=== PATIENT | female | born 1965 | race Caucasian/White ===

== ENCOUNTER 2018-04-07 20:18 | Inpatient (IN) | payer OTHER ==
[~2018-04-07] VITALS: Ht 157.5 cm; Wt 54.4 kg
[2018-04-07 21:41] LABS: ABSOLUTE BASOPHIL COUNT 0.1 /CUMM (0.0-0.2); ABSOLUTE EOSINOPHIL COUNT 0.2 /CUMM (0.0-0.7); ABSOLUTE GRANULOCYTE CT 5.8 /CUMM (1.4-6.5); ABSOLUTE MONOCYTE COUNT 0.6 /CUMM (0.10-0.60); EOSINOPHIL % 2.7 % (0-5); GRANULOCYTE % 66.8 % (42.2-75.2); HEMATOCRIT 28.4 % (37-47); MEAN CORPUSCULAR HGB 28.5 PG (27.0-31.0); MEAN CORPUSCULAR HGB CONC 32.5 G/DL (33.0-37.0); MEAN CORPUSCULAR VOLUME 87.8 FL (81.0-99.0); MEAN PLATELET VOLUME 6.1 FL (7.4-10.4); PLATELET COUNT 667 /CUMM (130-400); RED BLOOD CELL CT 3.24 /CUMM (4.20-5.40); WHITE BLOOD CELL COUNT 8.7 /CUMM (4.8-10.8)
--- NOTE | 2018-04-07 23:57 | ED GENERAL ADULT ---
History of Present Illness General Chief Complaint: Lower Extremity Problems Stated Complaint: "SENT TO BY DR. TAYLOR LT LEG INFECTION" Source: patient, family Exam Limitations: no limitations Vital Signs & Intake/Output Vital Signs & Intake/Output Vital Signs Date Time Temp Pulse Resp B/P B/P Pulse O2 O2 Flow FiO2 Mean Ox Delivery Rate 04/07 2038 98.7 94 18 179/95 96 Room Air ED Intake and Output 04/08 0000 04/07 1200 Intake Total Output Total Balance Patient 121 lb Weight Weight Reported by Patient Measurement Method Allergies Coded Allergies: Penicillins (UNKNOWN 02/05/18) amoxicillin (From AUGMENTIN) (HIVES 02/05/18) clavulanic acid (From AUGMENTIN) (HIVES 02/05/18) erythromycin base (UNKNOWN 02/05/18) tetracycline (UNKNOWN 02/05/18) Triage Note: PT FROM HOME C/O SIB DR TAYLOR FOR LT FOOT SWELLING/RED RASH X1 DAY. PT STATES 02/14 PT HAD AN OPERATION REMOVING THE BONE OF 4TH DIGIT LT FOOT. PT PLACED ON ANTIBIOTICS FOR STAFF/BACTERIAL INFECTION. PT THEN NOTICED YESTERDAY A RED RASH/SWELLING BEGAN TO FORM. AFEBRILE IN TRIAGE. UNABLE TO VIEW IN TRIAGE, DR TAYLOR WRAPPED PTS FOOT. VSS. Triage Nurses Notes Reviewed? yes HPI: Patient is a 52-year-old female with past medical history as outlined below, most significant only a chronic and poorly healing infection of the left fourth toe and foot. She has been under the care of Dr. Guzman from podiatry, who has performed multiple resections in the office. She was evaluated in the office today and noted her new onset petechiae running up the leg; she was instructed to come to the ED immediately for IV antibiotics and hospitalization for OR procedure tomorrow. She is afebrile and otherwise well appearing. Past History Travel History Traveled to [place] past 21 day No Medical History Any Pertinent Medical History? see below for history Neurological: multiple sclerosis, Parkinson's disease, ANGELY'S DISEASE EENT: NONE Cardiovascular: M.I. X 3 Gastrointestinal: NONE Hepatic: NONE Renal: NONE Musculoskeletal: fibromyalgia, LUPUS Psychiatric: NONE Endocrine: diabetes, hypothyroidism Blood Disorders: NONE Cancer(s): NONE Surgical History Surgical History: Multiple prior resections and revisions of the left fourth toe by podiatry Psychosocial History Who do you live with Spouse What is your primary language Persian Tobacco Use: Quit >30 days ago ETOH Use: denies use Illicit Drug Use: denies illicit drug use Family History Hx Contributory? No Review of Systems Review of Systems Constitutional: Reports: see HPI. Denies: chills, diaphoresis, fever, malaise, weakness. EENTM: Reports: no symptoms. Respiratory: Reports: no symptoms. Cardiovascular: Reports: no symptoms. GI: Reports: no symptoms. Genitourinary: Reports: no symptoms. Musculoskeletal: Reports: joint pain. Skin: Reports: erythema, rash. Neurological/Psychological: Reports: no symptoms. Hematologic/Endocrine: Reports: no symptoms. Immunologic/Allergic: Reports: no symptoms. All Other Systems: Reviewed and Negative Physical Exam Physical Exam General Appearance: well developed/nourished, no apparent distress, alert, awake , comfortable Extremities: focused examination of the left foot reveals a dusky pallor to the distal foot with a chronically ill-appearing left fourth digit with signs of gangrene. Proximally, a petechial rash has developed around the malleoli and is extending approximately 20 cm up the leg. Comments: HEENT: Inspection of the head reveals a normocephalic cranium with no signs of trauma. Ophtho: Extraocular muscles are intact. The sclera are noninjected, and there is no obvious discharge. Neck: No signs of trauma or asymmetry to the neck. Respiratory: The patient exhibits no signs of labored breathing. Cardiac: Non-tachycardic. GI: No gross abdominal distention. : Deferred Extremities: See above Neuro: The patient is oriented to person, place, time, and situation, with no obvious focal motor deficits. Cranial nerves II through XII are intact, and gait is normal. Behavioral: Calm and cooperative Dermatologic: Dermatologic examination reveals no obvious rashes or exanthems. Core Measures ACS in differential dx? No CVA/TIA Diagnosis: No Sepsis Present: No Sepsis Focused Exam Completed? No Progress Differential Diagnoses I considered the following diagnoses in my evaluation of the patient: Osteomyelitis, cellulitis, deep space tissue infection, sepsis Plan of Care: Orders Procedure Date/time Status Nothing by Mouth 04/08 B Active WESTERGREN SED RATE 04/[address] in observation 04/08 2 Active ED Holding Orders 04/08 2 Active Code Status 04/08 2 Active COMPREHENSIVE METABOLIC PANEL 08/20 2123 Complete CBC WITHOUT DIFFERENTIAL 04/07 2123 Complete Current Medications Sig/Kyra Start time Last Medication Dose Stop Time Status Admin Sodium Chloride 1,000 ML ONCE ONE 04/075 AC (Normal Saline 0.9%) 04/08 624 Vancomycin HCl 1,000 MG ONCE ONE 04/07 2345 CAN Sodium Chloride 250 ML 04/08 0044 (Normal Saline 0.9%) Laboratory Tests 04/07/182130: Anion Gap 7, Estimated GFR 58 L, BUN/Creatinine Ratio 15.0, Glucose 71, Calcium 8.7, Total Bilirubin 0.2, AST 25, ALT 21, Alkaline Phosphatase 97, Total Protein 6.6, Albumin 3.4 L, Globulin 3.2, Albumin/Globulin Ratio 1.1, CBC w Diff NO MAN DIFF REQ, RBC 3.24 L, MCV 87.8, MCH 28.5, MCHC 32.5 L, RDW 14.0, MPV 6.1 L, Gran % 66.8, Lymphocytes % 22.9, Monocytes % 6.6, Eosinophils % 2.7, Basophils % 1.0, Absolute Granulocytes 5.8, Absolute Lymphocytes 2.0, Absolute Monocytes 0.6 , Absolute Eosinophils 0.2, Absolute Basophils 0.1 Initial ED EKG: none Comments: Patient presents for worsening acute on chronic foot/leg infection with new onset petechiae running proximally. Podiatry plans to operate tomorrow and requests hospitalization for IV antibiotics. I discussed the case with Dr. Guzman over the phone and he requested that we hold off on the buttocks until after intraoperative cultures are obtained. I do not feel the patient can be safely discharged home this evening. Hospitalized in he was apparently stable condition. Departure Departure Time of Disposition: 2353 Disposition: STILL A PATIENT Condition: Stable Clinical Impression Primary Impression: Foot infection Referrals: Virgilio TREVINO,James Costa (PCP/Family) Departure Forms: Customer Survey General Discharge Information Observation Note Spoke With: Saqib Carty MD Physician Advisor Notified: MUSA LOWERY DO Place Patient In: Non-ED OBS Care Area Rationale for Observation: My rational for observation is as follows I feel the patient requires hospitalization for IV antibiotics and podiatry consultation for operating room intervention tomorrow. However, I feel that is possible that she may be deemed stable for discharge home after the procedure and thus I felt that observation was appropriate over admission. Critical Care Note Critical Care Note Critical Care Time: non-applicable
--- NOTE | 2018-04-08 00:41 | History & Physical ---
See Addendum Courtney Morris 04/08/18 0040: General Information and HPI MD Statement: I have seen and personally examined ARGELIA TELLEZ and documented this H&P. The patient is a 52 year old F who presented with a patient stated chief complaint of []. Source of Information: patient, family Exam Limitations: no limitations History of Present Illness: 52 year old female with PMH MS, Parkinson's disease, Huntingtons Dz, DM, MIx3 ( January 2017), Lupus, fibromyalgia, iron def anemia, hypothyroidism presenting to ED under the direction of Dr. Kurtz who saw her in his office. Patient reports she had surgery to her left foot 4th digit on 02/14 with subsequent ' staph bacterial infection'. She was placed on multiple abx and completed that course one week ago. She reports three day history of LLE swelling and redness. Her left 4th digit has sutures in place and is actively draining purulent drainage. She reports associated n/v, chills. She reports episodes of non bloody emesis as frequent as [id number] some days. Denies chest pain, SOB, abdominal pain, fever. Of Note: she is scheduled to have vascular surgery with possible stent placement in LLE next week. She had an MRI done (at [facility] in [place]) of LLE one week ago showing abscess and osteomyelitis. Dr. Tillman is her rooming house keeper. Patient states she has had issues with Hyperkalemia and Hyponatremia in the past 2/2 medication so she stopped her Losartan in January-Dr. Recinos aware. Allergies/Medications Allergies: Coded Allergies: Penicillins (UNKNOWN 02/05/18) amoxicillin (From AUGMENTIN) (HIVES 02/05/18) clavulanic acid (From AUGMENTIN) (HIVES 02/05/18) erythromycin base (UNKNOWN 02/05/18) tetracycline (UNKNOWN 02/05/18) Home Med list Atorvastatin Calcium (Lipitor) 40 MG TABLET 1 TAB PO DAILY HLP (Reported) Cilostazol 100 MG TABLET 1 TAB PO BID PVD (Reported) Gabapentin 600 MG TABLET 1 TAB PO TID NEUROPATHY (Reported) Levothyroxine Sodium (Synthroid) 137 MCG TABLET 1 TAB PO DAILY HYPOTHYROID ( Reported) Metoprolol Succ XL (Toprol XL) 25 MG TAB 1 TAB PO DAILY HTN (Reported) Promethazine HCl 25 MG TABLET 1 TAB PO Q8P PRN NAUSEA (Reported) Ranolazine (Ranexa) 500 MG TAB.ER.12H 1 TAB PO BID CAD (Reported) Past History Travel History Traveled to [place] past 21 day No Medical History Neurological: multiple sclerosis, Parkinson's disease, ANGELY'S DISEASE EENT: NONE Cardiovascular: M.I. X 3 Gastrointestinal: NONE Hepatic: NONE Renal: NONE Musculoskeletal: fibromyalgia, LUPUS Psychiatric: NONE Endocrine: diabetes, hypothyroidism Blood Disorders: NONE Cancer(s): NONE Surgical History Surgical History: Multiple prior resections and revisions of the left fourth toe by podiatry Past Family/Social History Psychosocial History Where do you live? Home Who Do You Live With? spouse Smoking Status: Current Everyday Smoker (trying to quit [id number]) ETOH Use: denies use Illicit Drug Use: denies illicit drug use Review of Systems Review of Systems Constitutional: Reports: chills, fever. EENTM: Reports: no symptoms. Cardiovascular: Reports: no symptoms. Respiratory: Reports: no symptoms. GI: Reports: nausea, vomiting. Genitourinary: Reports: no symptoms. Musculoskeletal: Reports: joint pain (LLE foot 4th digit), muscle pain. Skin: Reports: erythema. Exam & Diagnostic Data Last 24 Hrs of Vital Signs/I&O Vital Signs Date Time Temp Pulse Resp B/P B/P Pulse O2 O2 Flow FiO2 Mean Ox Delivery Rate 04/08 0036 97 Room Air 04/07 2038 98.7 94 18 179/95 96 Room Air Intake & Output 04/08 0800 04/08 0000 04/07 1600 Intake Total Output Total Balance Patient 121 lb Weight Weight Reported by Patient Measurement Method Physical Exam General Appearance Alert, Oriented X3, Cooperative, No Acute Distress Skin LLE medial aspect with petechiae; warmth; edema; erythema left foot 4th digit with sutures in place and purulent drainage Skin Temp/Moisture Exam: Warm/Dry HEENT Atraumatic, PERRLA Neck Supple Cardiovascular Regular Rate, Normal S1, Normal S2, No Murmurs Lungs Clear to Auscultation Abdomen Normal Bowel Sounds, Soft, No Tenderness Extremities see skin exam Assessment/Plan Assessment: 52 year old female with PMH MS, Parkinson's disease, Huntingtons Dz, DM, MIx3 ( January 2017), Lupus, fibromyalgia, iron def anemia, hypothyroidism presenting to ED under the direction of Dr. Kurtz who saw her in his office. Patient reports she had surgery to her left foot 4th digit on 02/14 with subsequent ' staph bacterial infection'. She was placed on multiple abx and completed that course one week ago. She reports three day history of LLE swelling and redness. Her left 4th digit has sutures in place and is actively draining purulent drainage. She reports associated n/v, chills. She reports episodes of non bloody emesis as frequent as [id number] some days. Patient to be admitted to general medicine service for further care of the following: Problem List 1. Left foot cellulitis 2. Left foot osteomyelitis 3. Hyperkalemia 4. Thrombocytosis Admission Data: VS T98.7 P94 RR18 BP179/95 Sat96%RA Labs: WBC 8.7 H/H 9.2/28.4 Plt 667 #Left foot cellulitis and osteomyelitis -IV fluids -No abx per Dr. Kurtz -NPO for OR in AM -D51/2NS overnight #Hyperkalemia-chronic; may be medication related -continue to monitor -ekg to check for changes #Thrombocytosis-likely reactive to infection -continue to monitor #Chronic medical problems -Novolin SSI for NPO overnight -home medications as prescribed -Nicotine patch 21% as per patient request DVT prophylaxis: heparin 5000units subcu/ALP RLE/ ambulation Code Status: DNR/DNI As Ranked By This Provider Problem List: 1. MULTIPLE SCLEROSIS 2. Parkinson's disease 3. Foot infection 4. HX LUPUS Core Measures/Misc (05/05) Acute Coronary Syndrome ACS Diagnosis: No Congestive Heart Failure Congestive Heart Failure Diagnosis No Cerebrovascular Accident CVA/TIA Diagnosis: No VTE (View Protocol) VTE Risk Factors Acute Medical Illness No Mechanical VTE Prophylaxis d/t N/A MechProphylax Ordered No VTE Pharm Prophylaxis d/t NA PharmProphylax ordered Sepsis (View protocol) Sepsis Present: No If YES complete Sepsis Event Note If YES complete Sepsis Event Note Tony Fields 04/08/18 0224: Core Measures/Misc (05/05) Sepsis (View protocol) If YES complete Sepsis Event Note If YES complete Sepsis Event Note Resident Review Statement Resident Statement: examined this patient, discussed with web development intern, agreed with web development intern, discussed with family, reviewed EMR data (avail), discussed with nursing , discussed with case mgmt, reviewed images, amended to note Other Findings: This is a 52-year-old female with past medical history significant for multiple sclerosis, Parkinson's disease, Angely's disease, hypertension, hyperlipidemia, type 2 diabetes mellitus, coronary artery disease, [place] 3, peripheral vascular disease, hypothyroidism, right femoral neck fracture status post-ORIF, chronic left fourth toe infections presented to the emergency department, sent in by Dr. Guzman for left foot infection. Patient has history of chronic left fourth toe infection, underwent surgery on , treated with multiple antibiotics including staph coverage, completed 1 week ago. She has been following Dr. Guzman closely, getting outpatient debridements [id number]. However she was found to have 3 day history of left lower extremity and foot swelling associated with redness. She has her fourth digit sutures in place, actively draining purulent discharge. She also reported nausea, vomiting, chills. Offnote patient reported that she was diagnosed with left foot abscess and osteomyelitis from MRI which [facility] [place]. She is also scheduled for vascular surgery with possible stent placement left lower extremity next week. She has issues with hyperkalemia in the past, losartan was stopped in January 2018 by her rooming house keeper Dr. Mcmanus. Patient denies any chest pain, short of breath, palpitations, cough, vomiting, abdominal pain, change in bladder bowel habits. Still continues to smoke 4 packs per day. Denies alcohol abuse and illicit drug abuse. -- VS T98.7 P94 RR18 BP179/95 Sat96%RA Labs: WBC 8.7 H/H 9.2/28.4 Plt 667 Sodium 133, potassium 5.6, BUN 15 and creatinine 1 --- 1. Left foot cellulitis/osteomyelitis Patient has chronic left fourth toe infection, status post bone removal 2017, getting [id number] outpatient debridements, found to have left foot abscess and osteomyelitis on MRI, sent in by Dr. Guzman to the emergency room for inpatient admission to take her to the emergency room for bone biopsy and debridement. * Admitted to [facility] * Monitor vitals every shift * monitor for fever, leukocytosis * Patient will be n.p.o. tonight * D5 half normal saline 75 mL/h * Will hold off antibiotics pending surgery in the a.m. * Follow-up podiatry recommendations * Start antibiotics in the a.m. after surgery Thrombocytosis Platelets 667 most likely reactive secondary to infection and anemia Continue to monitor platelet count Chronic hyperkalemia Most likely from medication related Will check EKG for any hyperkalemia changes Repeat potassium in the a.m. Hypertension continue metoprolol 25 daily Hyperlipidemia continue Lipitor 40 daily Diabetes mellitus Accu-Cheks, Novolin sliding scale and Levemir 22 units in the a.m. Peripheral neuropathy continue gabapentin 600 mg 3 times daily Coronary artery disease continue Lipitor, Ranexa, metoprolol Peripheral vascular disease continue cilostazol 100 twice daily Hypothyroidism continue levothyroxine 137 mcg daily Current daily smoker-nicotine patch 21 mg daily She is DNR/DNI N.p.o. Heparin subcu for DVT prophylaxis Pain pathway Saqib Leal MD 04/08/18 0712: Core Measures/Misc (05/05) Sepsis (View protocol) If YES complete Sepsis Event Note If YES complete Sepsis Event Note Attending MD Review Statement Attending Statement Attending MD Statement: examined this patient, discuss w/resident/PA/SECOND WORKER, agreed w/resident/PA/SECOND WORKER Attending Assessment/Plan: Patient is seen and examined independently by me. Care plan discussed with certified medical technician and resident. I agree with the physical exam findings and plan of care as outlined above with the following changes and additions. 52 yo F with history of CAD s/p [place] x3, PVD, HTN, HLD, DM, multiple sclerosis, Parkinson, [place]'s disease, hypothyroidism, s/p fall in December resulting left toes fracture with 4th digit bone protrusion which required surgery on 02/14/18 and had multiple debridement since then. Patient also has been on several course of antibiotic with Cipro as last one finished one week ago. She also had MRI told that she has left foot abscess and osteomyelitis. Patient is also followed by vascular surgery and planned to have stent placement of left leg next week. On exam, left 4th toe with erythema and warmth extending to left foot with petechial rash on left medial lower leg. In the ED, patient is afebrile. WBC 8.7. K 5.6. Patient is placed on observation to [facility] for left 4th toe infection/ osteomyelitis and LLE cellulitis. NPO for now and plan for OR procedure. Check ESR. Initiate antibiotic as soon as OR procedure culture is obtained. Podiatry consult. Check EKG. Saqib Carty MD FACP
[2018-04-08] MEDS ORDERED: LIPITOR40 M1 PO (00:47)
[2018-04-08] MEDS ORDERED: TOPROL XL25 M1 PO (00:48)
[2018-04-08] MEDS ORDERED: RANEXA500 M1 PO (00:49)
[2018-04-08] MEDS ORDERED: GABAPENTIN600 M1 PO (00:49)
[2018-04-08] MEDS ORDERED: CILOSTAZOL100 M1 PO (00:49)
[2018-04-08] MEDS ORDERED: PROMETHAZINE HC25 M3 PO (00:50)
[2018-04-08] MEDS ORDERED: SYNTHROID137 MCG PO (00:50)
[2018-04-08 06:08] LABS: ABSOLUTE BASOPHIL COUNT 0.1 /CUMM (0.0-0.2); ABSOLUTE EOSINOPHIL COUNT 0.2 /CUMM (0.0-0.7); ABSOLUTE GRANULOCYTE CT 4.4 /CUMM (1.4-6.5); ABSOLUTE LYMPH COUNT 2.1 /CUMM (1.2-3.4); ABSOLUTE MONOCYTE COUNT 0.4 /CUMM (0.10-0.60); BASOPHIL % 1.1 % (0.0-2.0); EOSINOPHIL % 3.3 % (0-5); GRANULOCYTE % 60.7 % (42.2-75.2); HEMATOCRIT 26.4 % (37-47); MEAN CORPUSCULAR HGB 28.8 PG (27.0-31.0); MEAN CORPUSCULAR VOLUME 87.2 FL (81.0-99.0); MEAN PLATELET VOLUME 6.3 FL (7.4-10.4); PLATELET COUNT 569 /CUMM (130-400); RBC DISTRIBUTION WIDTH 13.8 % (11.5-14.5); RED BLOOD CELL CT 3.02 /CUMM (4.20-5.40); WHITE BLOOD CELL COUNT 7.2 /CUMM (4.8-10.8)
--- NOTE | 2018-04-08 10:30 | RADIOLOGY REPORT ---
EXAMINATION: XR PORTABLE CHEST CLINICAL INFORMATION: Low sugar. COMPARISON: 03/03/2013 TECHNIQUE: Portable frontal view of the chest was obtained. FINDINGS: Cardiomediastinal silhouette is within normal limits. Lungs are symmetric expanded. There is mild interstitial prominence in bilateral lungs. Minimal left basilar atelectasis. No focal consolidation, effusion, edema or pneumothorax. No acute osseous abnormality seen. IMPRESSION: Mild left basilar atelectasis. No focal consolidation.
--- NOTE | 2018-04-08 12:18 | PN- Att Addend ---
Attending Addendum Attending Brief Note S: The patient feels cold in room, however no fever. Anticipating surgery. O: VS: Current Medications Sig/Kyra Start time Last Medication Dose Route Stop Time Status Admin Acetaminophen 650 MG Q6P PRN 04/08 0030 AC PO Atorvastatin Calcium 40 MG DAILY 04/08 0900 AC PO Cilostazol 100 MG BID 04/08 0900 AC PO Dextrose 25 GM ONCE ONE 04/08 1030 DC 04/08 IV 04/08 1031 1026 Dextrose 25 GM ONCE ONE 04/08 0900 DC 04/08 IV 04/08 0901 0853 Dextrose/Sodium 1,000 ML Q13H 04/08 0100 AC 04/08 Chloride IV 04/08 1359 0112 Gabapentin 600 MG Q8 04/08 06 AC PO Gabapentin 0 .STK-MED ONE 04/08 0558 DC PO Heparin Sodium 5,000 UNIT Q8 04/08 1400 AC (Porcine) SC Insulin Detemir 22 UNITS DAILY 04/08 0900 AC SC Insulin Human Regular 0 Q6 04/08 0100 AC 04/08 SC 0601 Levothyroxine Sodium 0.137 MG DAILY 04/08 0900 AC PO Metoprolol Succinate 25 MG DAILY 04/08 0900 AC 04/08 PO 0903 Nicotine 21 MG DAILY 04/08 0900 AC TOP Ondansetron HCl 0 .STK-MED ONE 04/07 2357 DC .ROUTE Ondansetron HCl 4 MG ONCE ONE 04/07 2345 DC 04/08 IV 04/07 2346 0018 Promethazine HCl 25 MG Q8P PRN 04/08 0100 AC PO 04/15 0059 Ranolazine 500 MG BID 04/08 09 AC 04/08 PO 0903 Sodium Chloride 1,000 ML ONCE ONE 04/07 2345 DC 04/08 IV 04/08 0624 0018 Vancomycin HCl 0 .STK-MED ONE 04/07 235 DC .ROUTE Vancomycin HCl 1,000 MG ONCE ONE 04/07 2345 CAN Sodium Chloride 250 ML IV 04/08 0044 Vital Signs Date Time Temp Pulse Resp B/P B/P Pulse O2 O2 Flow FiO2 Mean Ox Delivery Rate 04/08 09 97.9 80 20 142/65 04/08 0903 97.9 80 20 142/65 04/08 0750 97.6 88 20 147/78 99 Room Air 04/08 0548 95.7 90 20 156/77 100 Room Air 04/08 0036 97 Room Air 04/078 98.7 94 18 179/95 96 Room Air Intake & Output 04/08 1600 04/08 0800 04/08 0000 Intake Total Output Total Balance Patient 157 lb 121 lb Weight Weight Reported by Patient Reported by Patient Measurement Method Physical Exam: Chest: clear Cor: RRR nl S1, S2 w/o murm Abd: BS+, soft, NT Ext: pulses 1+, no edema, + erythematous ulcer left 4th-5th toe areas Labs/Tests: Laboratory Tests 04/08/18 0551: Anion Gap 6, Estimated GFR > 60, BUN/Creatinine Ratio 16.7, CBC w Diff NO MAN DIFF REQ, RBC 3.02 L, MCV 87.2, MCH 28.8, MCHC 33.0, RDW 13.8, MPV 6.3 L, Gran % 60.7, Lymphocytes % 28.7, Monocytes % 6.2, Eosinophils % 3.3, Basophils % 1.1, Absolute Granulocytes 4.4, Absolute Lymphocytes 2.1, Absolute Monocytes 0.4, Absolute Eosinophils 0.2, Absolute Basophils 0.1 04/08/18 0030: ESR Westergren 64 H 04/07/18 2131: Anion Gap 7, Estimated GFR 58 L, BUN/Creatinine Ratio 15.0, Glucose 71, Calcium 8.7, Total Bilirubin 0.2, AST 25, ALT 21, Alkaline Phosphatase 97, Total Protein 6.6, Albumin 3.4 L, Globulin 3.2, Albumin/Globulin Ratio 1.1, CBC w Diff NO MAN DIFF REQ, RBC 3.24 L, MCV 87.8, MCH 28.5, MCHC 32.5 L, RDW 14.0, MPV 6.1 L, Gran % 66.8, Lymphocytes % 22.9, Monocytes % 6.6, Eosinophils % 2.7, Basophils % 1.0, Absolute Granulocytes 5.8, Absolute Lymphocytes 2.0, Absolute Monocytes 0.6 , Absolute Eosinophils 0.2, Absolute Basophils 0.1 MRI of foot was done at outside Radiology Facility in [place] CT Impression/Plan: #Left Foot Osteomyelitis- ?4th/5th toes as per report. No fever, normal WBC. Plan: Await Podiatry input- to go to OR today. IV antibiotics post surgery (?Unasyn). Will calculate RCRI- assess surgical risk. Obtain copy of MRI report from outside imaging facility in [place], [place]. #DM2- has been hypoglycemic in ED and received D50 x 2 doses. Plan: Dextrose in IV's. Follow glu closely pre-operatively. Sliding scale insulin at present. #CAD- s/p LA - No c/o chest pain or ischemic changes on EKG. Plan: Obtain recent cardiac records and review. Dr. Tillman group is seeing at present. Continue Metoprolol & Ranolazine. Cardiac evaluation pre-op. #PVD- Had LLE MRI evaluation. May need stent. Is on Pletal. Plan: Will obtain vascular records. #Hyperlipidemia- on Atorvastatin. Plan: Continue Atorvastatin. #Hypothyroid- on Levothyroxine. Plan: Continue Levothyroxine. #Anemia- note significant decrease since 02/05 Hgb 11.1 and now 8.7. Plan: Heme test stools. Follow H/H. #Diabetic Neuropathy- on Gabapentin. Plan: Continue Gabapentin. ADDENDUM- The patient had been seen recently by Dr. Tillman and cleared for surgical procedure at that time. Will place notes in chart.
--- NOTE | 2018-04-08 14:51 | Operative Report ---
Operative/Inv Procedure Report Surgery Date: 04/08/18 Name of Procedure: 1 open incision and drainage deep to the deep fascia with exposure of the extensor and flexor tendon and tendon sheath multiple sites left 2 open, partial fourth ray resection left foot 3 intraoperative menstruation metabolic anesthesia 4 excisional debrided Pre-Operative Diagnosis: 1 open, necrotic wound left 2 osteomyelitis left 3 diabetic peripheral neuropathy 4 peripheral arterial disease Post-Operative Diagnosis: The same Estimated Blood Loss: less than 50ml Surgeon/Market Survey Representative: MICHA LOZADA DPM Anesthesia: moderate sedation, block Operative/Procedure Note Note: After obtaining informed consent the patient was brought to the operating room and placed on the operating table in the supine position. The patient was then securely fastened to the operating table utilizing a safety belt. After menstruation of IV sedation, 10 cc of 0.5% Marcaine plain was infiltrated about the patient's left ankle. The left foot and ankle were then scrubbed, prepped and draped in usual aseptic manner. Digitek the left foot, where a large full- thickness necrotic was identified. A 15 blade was utilized sharply advise skin margins. The dissection was then carried down deep to the deep fascia with exposure of the extensor and flexor tendon and tendon sheath multiple sites, both proximally and distally. All necrotic, nonviable infected tissue was sharply evacuated of the wound bed. The dissection was then carried down to the periosteum overlying the distal fourth metatarsal. This was incised and reflected. A sagittal bone saw was utilized to perform a through and through osteotomy. The distal osseous segment was freed and passed from the operative field. Specimen sent for both microbiology and pathologic inspection. The open was then irrigated with 3 L of normal sterile saline infused with 50,000 units of bacitracin. Following this, the foot was redraped and the surgeons top of the tragically lost. Any bleeding vessels identified were cauterized and lysed encountered. The open was then packed with half-inch iodoform and 3-0 nylon retention sutures were placed. Foot was then dressed with Kerlix and an Anthony wrap. Patient was noted to tolerate both procedure and anesthesia well and the patient was transported to the operating room to recovery with vital signs stable.
[2018-04-08 18:15] VITALS: BP 148/80
[2018-04-08 21:34] VITALS: BP 163/80
[2018-04-09 06:32] VITALS: BP 140/70
--- NOTE | 2018-04-09 07:20 | PN- Housestaff ---
Parviz Middleton 04/09/18 0712: Subjective Follow-up For: Left foot fourth toe cellulitis Possible osteomyelitis Diabetes mellitus Hypertension Peripheral vascular disease Subjective: I visited the patient this morning, she was lying back in her bed, alert and oriented 3, in no acute distress. She reports no fever, or chills. She had pain in her foot, which was relieved with medication. Review of Systems Constitutional: Reports: see HPI. Objective Last 24 Hrs of Vital Signs/I&O Vital Signs Date Time Temp Pulse Resp B/P B/P Pulse O2 O2 Flow FiO2 Mean Ox Delivery Rate 04/09 1442 98.4 79 18 122/64 97 Room Air 04/09 0824 88 130/68 04/09 0632 98.5 88 20 140/70 94 Room Air 04/08 2134 98.5 85 17 163/80 99 Room Air 04/08 2004 152/88 Intake & Output 04/09 1600 04/09 0800 04/09 0000 Intake Total 720 120 120 Output Total 500 Balance 720 120 -380 Intake, Oral 720 120 120 Output, Urine 500 Patient 120 lb 120 lb Weight Weight Reported by Patient Measurement Method Physical Exam General Appearance: Alert, Oriented X3, Cooperative, No Acute Distress Skin: No Rashes Skin Temp/Moisture Exam: Warm/Dry Sepsis Skin Exam (color): Normal for Ethnicity HEENT: Atraumatic Cardiovascular: Regular Rate, Normal S1, Normal S2 Lungs: Normal Air Movement Abdomen: Normal Bowel Sounds, Soft, No Tenderness Extremities: amputated left fourth toe Assessment/Plan Assessment: 52 year old female with PMH MS, Parkinson's disease, Huntingtons Dz, DM, MIx3 ( January 2017), Lupus, fibromyalgia, iron def anemia, hypothyroidism presenting to ED under the direction of Dr. Kurtz who saw her in his office. Patient reports she had surgery to her left foot 4th digit on 02/14 with subsequent ' staph bacterial infection'. She was placed on multiple abx and completed that course one week ago. She reports three day history of LLE swelling and redness. Her left 4th digit has sutures in place and is actively draining purulent drainage. She reports associated n/v, chills. She reports episodes of non bloody emesis as frequent as [id number] some days. Left foot cellulitis: We are awaiting the results of the culture from the OR, to decide for antibiotics. ID consult appreciated. Plan: Holding IV antibiotics. Left foot osteomyelitis: Amputation of left fourth toe was done by Dr. Guzman. He probably will take the patient later to OR for the revision. Plan: Imaging was done Hyperkalemia: may be medication related Plan: continue to monitor, ECG to check for changes Thrombocytosis: likely reactive to infection Plan: continue to monitor Active smoker: Actively uses tobacco Plan: Nicotine patch 21mg as per patient request DVT prophylaxis: heparin 5000units subcu/ALP RLE/ ambulation Code Status: DNR/DNI Problem List: 1. Cellulitis 2. Diabetes mellitus type 1 3. Parkinson's disease 4. Moira's chorea 5. Hypothyroidism Pain Ratin Pain Location: Left foot Pain Goal: Pain 4 or less Pain Plan: percocet Tomorrow's Labs & Rationales: CBC BEP Jah Gan MD 04/09/18 6425: Attending MD Review Statement Attending Statement Attending MD Statement: examined this patient, discuss w/resident/PA/FAMILY COURT JUSTICE, agreed w/resident/PA/FAMILY COURT JUSTICE, reviewed EMR data (avail), discussed with nursing, discussed with case mgmt, amended to note Attending Assessment/Plan: The patient was seen and discussed with house staff, nursing, and case management. Converted to full admission. ID input appreciated. Awaiting cultures prior to antibiotics. Will need further surgery/closure ?later in week. Await input from Podiatry.
[2018-04-09 14:42] VITALS: BP 122/64
--- NOTE | 2018-04-09 15:48 | Cons- Infect Disease ---
General Information and HPI Consulting Request Date of Consult: 04/09/18 Requested By: Jah Gan MD Reason for Consult: Osteomyelitis of the left fourth toe and metatarsal Source of Information: patient, family History of Present Illness: This is a 52-year-old woman with a history of coronary artery disease, status post SC, multiple sclerosis, Parkinson's disease, Angely's disease, lupus, hypothyroidism, diabetes and peripheral vascular disease, status post a fall 3 months prior to admission resulting in a fracture of her left fourth toe, treated by her local flight mechanic with Keflex, with pain and drainage since then, status post removal of part of the toe nearly 8 weeks prior to admission by her flight mechanic, with "Staph" isolated from the culture, continued on Keflex postop, with the addition of Ciprofloxacin several weeks prior to admission, both of which were discontinued by the patient approximately 2 weeks prior to admission, seen by Vascular surgery 4 days prior to admission, with plans for revascularization on April 14, admitted on April 07 after an outpatient MRI revealed an abscess and osteomyelitis of the left foot, with continued pain and drainage from the foot and with the more acute onset of erythema and edema over the dorsum of the foot and leg. On admission she was afebrile. Laboratory data revealed a white blood cell count of 9000, BUN/creatinine 15 and 1.0, with normal liver enzymes. Urinalysis 1-3 RBC/10-15 WBCs. Chest x-ray revealed mild left basilar atelectasis. She was followed off antibiotics and was taken to the OR on April 08 for an open, partial fourth ray resection of the left foot. She was followed off antibiotics postoperatively and has remained afebrile with a normal white blood cell count. She does note some discomfort in the left foot but has no other complaints. Allergies/Medications Allergies: Coded Allergies: Penicillins (UNKNOWN 02/05/18) amoxicillin (From AUGMENTIN) (HIVES 02/05/18) clavulanic acid (From AUGMENTIN) (HIVES 02/05/18) erythromycin base (UNKNOWN 02/05/18) tetracycline (UNKNOWN 02/05/18) Home Med List: Atorvastatin Calcium (Lipitor) 40 MG TABLET 1 TAB PO DAILY HLP (Reported) Cilostazol 100 MG TABLET 1 TAB PO BID PVD (Reported) Gabapentin 600 MG TABLET 1 TAB PO TID NEUROPATHY (Reported) Levothyroxine Sodium (Synthroid) 137 MCG TABLET 1 TAB PO DAILY HYPOTHYROID ( Reported) Metoprolol Succ XL (Toprol XL) 25 MG TAB 1 TAB PO DAILY HTN (Reported) Promethazine HCl 25 MG TABLET 1 TAB PO Q8P PRN NAUSEA (Reported) Ranolazine (Ranexa) 500 MG TAB.ER.12H 1 TAB PO BID CAD (Reported) Past History Travel History Traveled to [place] past 21 day No Medical History Neurological: multiple sclerosis, Parkinson's disease, ANGELY'S DISEASE EENT: NONE Cardiovascular: CAD, M.I. X 3 Gastrointestinal: NONE Hepatic: NONE Renal: NONE Musculoskeletal: fibromyalgia, LUPUS Psychiatric: NONE Endocrine: diabetes, hypothyroidism Blood Disorders: NONE Cancer(s): NONE History of MRSA: No History of VRE: No History of CDIFF: No Isolation History: Standard Surgical History Surgical History: s/p resection of part of the bone of the left 4th toe Psychosocial History Where Do You Live? Home Who Do You Live With? spouse Smoking Status: Current Everyday Smoker (trying to quit [id number]) ETOH Use: denies use Illicit Drug Use: denies illicit drug use Review of Systems Review of Systems All Other Systems: Reviewed and Negative Exam & Diagnostic Data Last 24 Hrs of Vital Signs/I&O Vital Signs Date Time Temp Pulse Resp B/P B/P Pulse O2 O2 Flow FiO2 Mean Ox Delivery Rate 04/09 1442 98.4 79 18 122/64 97 Room Air 04/09 0824 88 130/68 04/09 0632 98.5 88 20 140/70 94 Room Air 04/08 2134 98.5 85 17 163/80 99 Room Air 04/08 2004 152/88 04/08 1815 97.8 76 18 148/80 98 Room Air 04/08 1800 98 Room Air Intake & Output 04/09 1600 04/09 0800 04/09 0000 Intake Total 720 120 120 Output Total 500 Balance 720 120 -380 Intake, Oral 720 120 120 Output, Urine 500 Patient 120 lb 120 lb Weight Weight Reported by Patient Measurement Method Physical Exam Other Physical Findings: She is awake and alert in no acute distress. She is afebrile. Skin reveals no rash. HEENT exam is negative. Neck is supple with no adenopathy. Lungs are clear. Heart regular rhythm with no murmur. Abdomen is soft, nontender with positive bowel sounds. Back no CVA tenderness. Extremities left foot dressing intact; left leg with no erythema, edema or warmth. Neuro is without focality. Last 24 Hours of Lab Results: Laboratory Tests 04/08 04/08 1219 0551 Chemistry Sodium (137 - 145 mmol/L) 132 L Potassium (3.5 - 5.1 mmol/L) 4.8 Chloride (98 - 107 mmol/L) 106 Carbon Dioxide (22 - 30 mmol/L) 21 L Anion Gap (5 - 16) 6 BUN (7 - 17 mg/dL) 15 Creatinine (0.5 - 1.0 mg/dL) 0.9 Estimated GFR (>60 ml/min) > 60 BUN/Creatinine Ratio (7 - 25 %) 16.7 Hematology CBC w Diff NO MAN DIFF REQ WBC (4.8 - 10.8 /CUMM) 7.2 RBC (4.20 - 5.40 /CUMM) 3.02 L Hgb (12.0 - 16.0 G/DL) 8.7 L Hct (37 - 47 %) 26.4 L MCV (81.0 - 99.0 FL) 87.2 MCH (27.0 - 31.0 PG) 28.8 MCHC (33.0 - 37.0 G/DL) 33.0 RDW (11.5 - 14.5 %) 13.8 Plt Count (130 - 400 /CUMM) 569 H MPV (7.4 - 10.4 FL) 6.3 L Gran % (42.2 - 75.2 %) 60.7 Lymphocytes % (20.5 - 51.1 %) 28.7 Monocytes % (1.7 - 9.3 %) 6.2 Eosinophils % (0 - 5 %) 3.3 Basophils % (0.0 - 2.0 %) 1.1 Absolute Granulocytes (1.4 - 6.5 /CUMM) 4.4 Absolute Lymphocytes (1.2 - 3.4 /CUMM) 2.1 Absolute Monocytes (0.10 - 0.60 /CUMM) 0.4 Absolute Eosinophils (0.0 - 0.7 /CUMM) 0.2 Absolute Basophils (0.0 - 0.2 /CUMM) 0.1 Urines Urine Color (YEL,AMB,STR) YEL Urine Clarity (CLEAR) HAZY H Urine pH (5.0 - 8.0) 6.0 Ur Specific [place] (1.001 - 1.035) 1.010 Urine Protein (NEG,<30 MG/DL) NEG Urine Ketones (NEG) NEG Urine Nitrite (NEG) NEG Urine Bilirubin (NEG) NEG Urine Urobilinogen (0.1 - 1.0 EU/dl) 0.2 Ur Leukocyte Esterase (NEG) MOD H Ur Microscopic SEDIMENT EXAMINED Urine RBC (0 - 5 /HPF) 1-3 Urine WBC (0 - 2 /HPF) 10-15 H Ur Epithelial Cells (NONE,FEW) FEW Urine Bacteria (NEG/NONE) FEW H Urine Hemoglobin (NEG) NEG Urine Glucose (N MG/DL) NEG 04/08 04/07 0030 2131 Chemistry Sodium (137 - 145 mmol/L) 133 L Potassium (3.5 - 5.1 mmol/L) 5.6 H Chloride (98 - 107 mmol/L) 102 Carbon Dioxide (22 - 30 mmol/L) 23 Anion Gap (5 - 16) 7 BUN (7 - 17 mg/dL) 15 Creatinine (0.5 - 1.0 mg/dL) 1.0 Estimated GFR (>60 ml/min) 58 L BUN/Creatinine Ratio (7 - 25 %) 15.0 Glucose (65 - 99 mg/dL) 71 Calcium (8.4 - 10.2 mg/dL) 8.7 Total Bilirubin (0.2 - 1.3 mg/dL) 0.2 AST (14 - 36 U/L) 25 ALT (9 - 52 U/L) 21 Alkaline Phosphatase (<127 U/L) 97 Total Protein (6.3 - 8.2 g/dL) 6.6 Albumin (3.5 - 5.0 g/dL) 3.4 L Globulin (1.9 - 4.2 gm/dL) 3.2 Albumin/Globulin Ratio (1.1 - 2.2 %) 1.1 Hematology CBC w Diff NO MAN DIFF REQ WBC (4.8 - 10.8 /CUMM) 8.7 RBC (4.20 - 5.40 /CUMM) 3.24 L Hgb (12.0 - 16.0 G/DL) 9.2 L Hct (37 - 47 %) 28.4 L MCV (81.0 - 99.0 FL) 87.8 MCH (27.0 - 31.0 PG) 28.5 MCHC (33.0 - 37.0 G/DL) 32.5 L RDW (11.5 - 14.5 %) 14.0 Plt Count (130 - 400 /CUMM) 667 H MPV (7.4 - 10.4 FL) 6.1 L Gran % (42.2 - 75.2 %) 66.8 Lymphocytes % (20.5 - 51.1 %) 22.9 Monocytes % (1.7 - 9.3 %) 6.6 Eosinophils % (0 - 5 %) 2.7 Basophils % (0.0 - 2.0 %) 1.0 Absolute Granulocytes (1.4 - 6.5 /CUMM) 5.8 Absolute Lymphocytes (1.2 - 3.4 /CUMM) 2.0 Absolute Monocytes (0.10 - 0.60 /CUMM) 0.6 Absolute Eosinophils (0.0 - 0.7 /CUMM) 0.2 Absolute Basophils (0.0 - 0.2 /CUMM) 0.1 ESR Westergren (0 - 20 MM) 64 H Last 24 Hours of Donovan Results: OR culture April 08 labeled left foot bone pending Diagnostic Data Recent Imaging Findings: Chest x-ray April 08 mild left basilar atelectasis Assessment/Plan Assessment/Plan Impression: This is a 52-year-old woman with diabetes, status post a fall 3 months prior to admission resulting in a fracture of her left fourth toe, status post removal of part of the toe nearly 2 months prior to admission and treated over the past 3 months with antibiotics, admitted on April 07 with continued drainage and pain in the left foot and the more acute onset of erythema and swelling over the dorsum of her left foot and leg, after an outpatient MRI 5 days prior to admission revealing an abscess and osteomyelitis of the left foot, found on admission to be afebrile with a normal white blood cell count now one day status post open, partial fourth ray resection of the left foot.. Her clinical picture is consistent with osteomyelitis of the left fourth toe. She has undergone resection of the toe and part of the metatarsal and will require a prolonged course of antibiotics for residual osteomyelitis. Her OR culture is pending and, as she is stable, with her temperatures and white blood cell count remaining normal, feel that she can be followed off antibiotics pending culture results. She does report multiple antibiotic allergies, which will need to be taken into account when choosing her antibiotics. Suggestion: 1. Follow-up the OR culture 2. Await return to the OR later this week 3. May need to defer her scheduled vascular surgery (will need to discuss with Dr. Oneil) 4. Continue to follow off antibiotics pending above Consult Acknowledgment - Thank you for your consult request.
--- NOTE | 2018-04-09 17:16 | Cons- Endocrinology ---
General Information and HPI Consulting Request Date of Consult: 04/09/18 Requested By: medical team Reason for Consult: uncontrol;led diabetes Source of Information: patient, old records Exam Limitations: no limitations History of Present Illness: This 52-year-old woman has a long-standing history of type 1 diabetes. She tends to take her background insulin insulin which is Lantus 22 units once a day but takes very little premeal; insulin at home. She is often noncompliant on her diabetic regimen. The patient apparently fractured toes in her left foot about 2 or 3 months ago. She states that she then developed some exposed bone. She was taken to the OR by a plant operations worker at [facility].. Yesterday she saw Dr. Garcia in the office who sent her to the emergency room. She then under went surgery with incision and drainage of abscess in the left foot along with a partial fourth ray resection. This was done by Dr. Guzman yesterday. The patient did not receive her usual dose of Levemir yesterday morning. She received 1 dose of regular and 4 units in the morning. Her sugars then became low yesterday during the day while the patient was n.p.o. She was not placed on any IV fluids at all while she was n.p.o. The patient did receive some 50% glucose on two occasions when her sugars became low.. When she returned from the OR her sugar was 305. Today the patient sugars became very high. She has received some extra NovoLog. She did receive her 22 units of Levemir this morning. Allergies/Medications Allergies: Coded Allergies: Penicillins (UNKNOWN 02/05/18) amoxicillin (From AUGMENTIN) (HIVES 02/05/18) clavulanic acid (From AUGMENTIN) (HIVES 02/05/18) erythromycin base (UNKNOWN 02/05/18) tetracycline (UNKNOWN 02/05/18) Home Med List: Atorvastatin Calcium (Lipitor) 40 MG TABLET 1 TAB PO DAILY HLP (Reported) Cilostazol 100 MG TABLET 1 TAB PO BID PVD (Reported) Gabapentin 600 MG TABLET 1 TAB PO TID NEUROPATHY (Reported) Insulin Aspart (Novolog) 100 UNIT/ML VIAL 0 UNITS SC SEE ADMIN CRITERIA DM Take 2 units before each meal Add additional units per slioding scale below: 150-200: 1 unit 201-250: 2 units 251-300: 3 units 301-350: 4 units 351-400: 5 units 401-450: 6 units Insulin-Lantus (Lantus) 100 UNIT/ML VIAL 16 UNITS SC QHS DM Levothyroxine Sodium (Synthroid) 137 MCG TABLET 1 TAB PO DAILY HYPOTHYROID ( Reported) Metoprolol Succ XL (Toprol XL) 25 MG TAB 1 TAB PO DAILY HTN (Reported) Promethazine HCl 25 MG TABLET 1 TAB PO Q8P PRN NAUSEA (Reported) Ranolazine (Ranexa) 500 MG TAB.ER.12H 1 TAB PO BID CAD (Reported) Review of Systems Review of Systems Constitutional: Denies: chills, fever. Cardiovascular: Denies: chest pain. Respiratory: Denies: cough. GI: Denies: abdominal pain, nausea, vomiting. Genitourinary: Denies: dysuria. Past History Travel History Traveled to [place] past 21 day No Medical History Neurological: multiple sclerosis, Parkinson's disease, ANGELY'S DISEASE EENT: NONE Cardiovascular: CAD, M.I. X 3 Gastrointestinal: NONE Hepatic: NONE Renal: NONE Musculoskeletal: fibromyalgia, LUPUS Psychiatric: NONE Endocrine: diabetes, hypothyroidism Blood Disorders: NONE Cancer(s): NONE Surgical History Surgical History: s/p resection of part of the bone of the left 4th toe Psychosocial History Where Do You Live? Home Who Do You Live With? spouse Smoking Status: Current Everyday Smoker (trying to quit [id number]) ETOH Use: denies use Illicit Drug Use: denies illicit drug use Exam & Diagnostic Data Last 24 Hrs of Vital Signs/I&O Vital Signs Date Time Temp Pulse Resp B/P B/P Pulse O2 O2 Flow FiO2 Mean Ox Delivery Rate 04/09 1442 98.4 79 18 122/64 97 Room Air 04/09 0824 88 130/68 04/09 0632 98.5 88 20 140/70 94 Room Air 04/08 2134 98.5 85 17 163/80 99 Room Air 04/08 2004 152/88 Intake & Output 04/09 1600 04/09 0800 04/09 0000 Intake Total 720 120 120 Output Total 500 Balance 720 120 -380 Intake, Oral 720 120 120 Output, Urine 500 Patient 120 lb 120 lb Weight Weight Reported by Patient Measurement Method Physical Exam General Appearance: alert, awake, comfortable Head: normal appearance Neck: normal inspection Respiratory: normal breath sounds Cardiovascular: regular rate/rhythm Gastrointestinal: normal bowel sounds Extremities: normal inspection Labs/Donovan Results: Laboratory Tests 04/08 04/08 1219 0551 Chemistry Sodium (137 - 145 mmol/L) 132 L Potassium (3.5 - 5.1 mmol/L) 4.8 Chloride (98 - 107 mmol/L) 106 Carbon Dioxide (22 - 30 mmol/L) 21 L Anion Gap (5 - 16) 6 BUN (7 - 17 mg/dL) 15 Creatinine (0.5 - 1.0 mg/dL) 0.9 Estimated GFR (>60 ml/min) > 60 BUN/Creatinine Ratio (7 - 25 %) 16.7 Hematology CBC w Diff NO MAN DIFF REQ WBC (4.8 - 10.8 /CUMM) 7.2 RBC (4.20 - 5.40 /CUMM) 3.02 L Hgb (12.0 - 16.0 G/DL) 8.7 L Hct (37 - 47 %) 26.4 L MCV (81.0 - 99.0 FL) 87.2 MCH (27.0 - 31.0 PG) 28.8 MCHC (33.0 - 37.0 G/DL) 33.0 RDW (11.5 - 14.5 %) 13.8 Plt Count (130 - 400 /CUMM) 569 H MPV (7.4 - 10.4 FL) 6.3 L Gran % (42.2 - 75.2 %) 60.7 Lymphocytes % (20.5 - 51.1 %) 28.7 Monocytes % (1.7 - 9.3 %) 6.2 Eosinophils % (0 - 5 %) 3.3 Basophils % (0.0 - 2.0 %) 1.1 Absolute Granulocytes (1.4 - 6.5 /CUMM) 4.4 Absolute Lymphocytes (1.2 - 3.4 /CUMM) 2.1 Absolute Monocytes (0.10 - 0.60 /CUMM) 0.4 Absolute Eosinophils (0.0 - 0.7 /CUMM) 0.2 Absolute Basophils (0.0 - 0.2 /CUMM) 0.1 Urines Urine Color (YEL,AMB,STR) YEL Urine Clarity (CLEAR) HAZY H Urine pH (5.0 - 8.0) 6.0 Ur Specific [place] (1.001 - 1.035) 1.010 Urine Protein (NEG,<30 MG/DL) NEG Urine Ketones (NEG) NEG Urine Nitrite (NEG) NEG Urine Bilirubin (NEG) NEG Urine Urobilinogen (0.1 - 1.0 EU/dl) 0.2 Ur Leukocyte Esterase (NEG) MOD H Ur Microscopic SEDIMENT EXAMINED Urine RBC (0 - 5 /HPF) 1-3 Urine WBC (0 - 2 /HPF) 10-15 H Ur Epithelial Cells (NONE,FEW) FEW Urine Bacteria (NEG/NONE) FEW H Urine Hemoglobin (NEG) NEG Urine Glucose (N MG/DL) NEG 04/08 04/07 0030 2131 Chemistry Sodium (137 - 145 mmol/L) 133 L Potassium (3.5 - 5.1 mmol/L) 5.6 H Chloride (98 - 107 mmol/L) 102 Carbon Dioxide (22 - 30 mmol/L) 23 Anion Gap (5 - 16) 7 BUN (7 - 17 mg/dL) 15 Creatinine (0.5 - 1.0 mg/dL) 1.0 Estimated GFR (>60 ml/min) 58 L BUN/Creatinine Ratio (7 - 25 %) 15.0 Glucose (65 - 99 mg/dL) 71 Calcium (8.4 - 10.2 mg/dL) 8.7 Total Bilirubin (0.2 - 1.3 mg/dL) 0.2 AST (14 - 36 U/L) 25 ALT (9 - 52 U/L) 21 Alkaline Phosphatase (<127 U/L) 97 Total Protein (6.3 - 8.2 g/dL) 6.6 Albumin (3.5 - 5.0 g/dL) 3.4 L Globulin (1.9 - 4.2 gm/dL) 3.2 Albumin/Globulin Ratio (1.1 - 2.2 %) 1.1 Hematology CBC w Diff NO MAN DIFF REQ WBC (4.8 - 10.8 /CUMM) 8.7 RBC (4.20 - 5.40 /CUMM) 3.24 L Hgb (12.0 - 16.0 G/DL) 9.2 L Hct (37 - 47 %) 28.4 L MCV (81.0 - 99.0 FL) 87.8 MCH (27.0 - 31.0 PG) 28.5 MCHC (33.0 - 37.0 G/DL) 32.5 L RDW (11.5 - 14.5 %) 14.0 Plt Count (130 - 400 /CUMM) 667 H MPV (7.4 - 10.4 FL) 6.1 L Gran % (42.2 - 75.2 %) 66.8 Lymphocytes % (20.5 - 51.1 %) 22.9 Monocytes % (1.7 - 9.3 %) 6.6 Eosinophils % (0 - 5 %) 2.7 Basophils % (0.0 - 2.0 %) 1.0 Absolute Granulocytes (1.4 - 6.5 /CUMM) 5.8 Absolute Lymphocytes (1.2 - 3.4 /CUMM) 2.0 Absolute Monocytes (0.10 - 0.60 /CUMM) 0.6 Absolute Eosinophils (0.0 - 0.7 /CUMM) 0.2 Absolute Basophils (0.0 - 0.2 /CUMM) 0.1 ESR Westergren (0 - 20 MM) 64 H Assessment/Plan Assessment/Plan 52-year-old woman has a known history of type 1 diabetes with severe complications. The patient was taken to surgery by Dr. Guzman for infection with abscess and cellulitis in the left foot. Yesterday the patient was made n.p.o. and received 4 units of regular insulin in the morning. She then became severely hypoglycemic. She was not given any IV fluids at all while she was n.p.o. except for the dextrose when her sugar became low. When she returned from the OR last night her sugar was high. Today the patient did receive her Levemir and her sugars continued to be high until tonight when after some extra NovoLog her sugar finally came down into an acceptable range.. In general patients receiving insulin should not be made n.p.o. without ordering glucose containing fluids given intravenously to counteract the effects of insulin. With regard to future insulin orders I would recommend decreasing her Levemir to 16 units once a day given in the morning. We should also change her sliding scale NovoLog before meals. Sliding scale NovoLog before meals should be less than 100 give no insulin, 101-150 give 2 units NovoLog, 151-200 give 3 units NovoLog, 201-250 give 4 units NovoLog, 251-300 give 5 units NovoLog, 301 1949 give 6 units NovoLog, 351-400 give 7 units NovoLog. Bedtime sliding scale NovoLog can stay as written. Consult Acknowledgment - Thank you for your consult request.
[2018-04-09 22:08] VITALS: BP 130/76
--- NOTE | 2018-04-10 07:00 | PN- Housestaff ---
See Addendum Subjective Follow-up For: Left foot fourth toe cellulitis Possible osteomyelitis Diabetes mellitus Hypertension Peripheral vascular disease Subjective: I visit the patient is morning, she was lying back in her bed alert and oriented She was complaining of pain at the site of amputation. No major complaints reported by the nurse of the patient overnight. Review of Systems Constitutional: Reports: see HPI. Objective Last 24 Hrs of Vital Signs/I&O Vital Signs Date Time Temp Pulse Resp B/P B/P Pulse O2 O2 Flow FiO2 Mean Ox Delivery Rate 04/10 1531 98.9 86 22 138/68 98 Room Air 04/10 0834 78 140/70 04/10 0833 78 140/70 04/10 0721 98.3 78 22 140/70 93 04/09 2208 98.2 83 22 130/76 100 Room Air 04/09 2107 98.2 83 18 130/76 Intake & Output 04/10 1600 04/10 0800 04/10 0000 Intake Total 740 240 580 Output Total Balance 740 240 580 Intake, IV 100 Intake, Oral 740 240 480 Number 1 Bowel Movements Physical Exam General Appearance: Alert, Oriented X3, Cooperative, No Acute Distress Skin: No Rashes Cardiovascular: Regular Rate, Normal S1, Normal S2 Abdomen: Normal Bowel Sounds, Soft, No Tenderness Vascular: Normal Pulses, Pulses Symmetrical Assessment/Plan Assessment: 52 year old female with PMH MS, Parkinson's disease, Huntingtons Dz, DM, MIx3 ( January 2017), Lupus, fibromyalgia, iron def anemia, hypothyroidism presenting to ED under the direction of Dr. Kurtz who saw her in his office. Patient reports she had surgery to her left foot 4th digit on 02/14 with subsequent ' staph bacterial infection'. She was placed on multiple abx and completed that course one week ago. She reports three day history of LLE swelling and redness. Her left 4th digit has sutures in place and is actively draining purulent drainage. She reports associated n/v, chills. She reports episodes of non bloody emesis as frequent as [id number] some days. Left foot cellulitis: We are awaiting the results of the culture from the OR, to decide for antibiotics. ID consult appreciated. Gram-negative rods and gram- positive cocci was shown in the bone culture. Plan: Holding IV antibiotics. Meropenem every 8 hours IV was started today. Left foot osteomyelitis: Amputation of left fourth toe was done by Dr. Guzman. He probably will take the patient later to OR for the revision. Plan: Imaging was done Hyperkalemia: may be medication related Plan: continue to monitor, ECG to check for changes Thrombocytosis: likely reactive to infection Plan: continue to monitor Active smoker: Actively uses tobacco Plan: Nicotine patch 21mg as per patient request DVT prophylaxis: heparin 5000units subcu/ALP RLE/ ambulation Code Status: DNR/DNI Problem List: 1. Cellulitis 2. Osteomyelitis Pain Ratin Pain Location: Amputated toes Pain Goal: Pain 7 or less Pain Plan: Morphine Tomorrow's Labs & Rationales: BEP
[2018-04-10 07:21] VITALS: BP 140/70
[2018-04-10 08:23] LABS: ABSOLUTE BASOPHIL COUNT 0.1 /CUMM (0.0-0.2); ABSOLUTE EOSINOPHIL COUNT 0.2 /CUMM (0.0-0.7); ABSOLUTE GRANULOCYTE CT 5.3 /CUMM (1.4-6.5); ABSOLUTE LYMPH COUNT 1.9 /CUMM (1.2-3.4); ABSOLUTE MONOCYTE COUNT 0.5 /CUMM (0.10-0.60); BASOPHIL % 0.9 % (0.0-2.0); EOSINOPHIL % 2.8 % (0-5); GRANULOCYTE % 65.7 % (42.2-75.2); HEMATOCRIT 25.2 % (37-47); MEAN CORPUSCULAR HGB 28.4 PG (27.0-31.0); MEAN CORPUSCULAR HGB CONC 32.4 G/DL (33.0-37.0); MEAN CORPUSCULAR VOLUME 87.8 FL (81.0-99.0); MEAN PLATELET VOLUME 7.1 FL (7.4-10.4); PLATELET COUNT 463 /CUMM (130-400); RBC DISTRIBUTION WIDTH 14.1 % (11.5-14.5); RED BLOOD CELL CT 2.87 /CUMM (4.20-5.40)
--- NOTE | 2018-04-10 08:27 | PN- Diabetes ---
Assessment/Plan Diabetes Assessment: The patient feels okay this morning. She has no nausea or vomiting. However her sugar became very high this morning. This could be due to the fact that Levemir and a type I diabetic does not last a full 24 hours. Plan: Suggest change Levemir to 14 units twice a day starting today. Continue the present sliding scale NovoLog before meals. Bedtime sliding scale NovoLog can be increased to less than 250 give no insulin, 251-300 give 2 units NovoLog, 301 -350 give 3 units NovoLog, 351-400 give 4 units NovoLog. Subjective Subjective: feels okay Review of Systems Constitutional: Denies: chills, fever. Cardiovascular: Denies: chest pain. Gastrointestinal: Denies: nausea, vomiting. Objective Last 24 Hrs of Vital Signs/I&O Vital Signs Date Time Temp Pulse Resp B/P B/P Pulse O2 O2 Flow FiO2 Mean Ox Delivery Rate 04/10 721 98.3 78 22 140/70 93 04/09 2208 98.2 83 22 130/76 100 Room Air 04/09 2107 98.2 83 18 130/76 04/09 1442 98.4 79 18 122/64 97 Room Air Intake & Output 04/10 1600 04/10 0804/10 0000 Intake Total 240 580 Output Total Balance 240 580 Intake, IV 100 Intake, Oral 240 480 Vital Signs Date Time Temp Pulse Resp B/P B/P Pulse O2 O2 Flow FiO2 Mean Ox Delivery Rate 04/10 721 98.3 78 22 140/70 93 04/098 98.2 83 22 130/76 100 Room Air 04/09 2107 98.2 83 18 130/76 04/09 1442 98.4 79 18 122/64 97 Room Air Intake & Output 04/10 1600 04/10 0804/10 0000 Intake Total 240 580 Output Total Balance 240 580 Intake, IV 100 Intake, Oral 240 480 Physical Exam General Appearance: alert, awake, comfortable Head: normal appearance Neck: normal inspection Respiratory: normal breath sounds Cardiovascular: regular rate/rhythm Extremities: left foot bandaged Current Medications: Current Medications Sig/Kyra Start time Last Medication Dose Route Stop Time Status Admin Acetaminophen 0 .STK-MED ONE 04/09 1756 DC IV Acetaminophen 1,000 MG Q6P PRN 04/08 1330 AC N/A 1 UNIT IV Acetaminophen 650 MG Q6P PRN 04/08 0030 AC PO Atorvastatin Calcium 40 MG DAILY 04/08 0900 AC 04/09 PO 0822 Cilostazol 100 MG BID 04/08 0900 AC 04/09 PO 2107 Gabapentin 600 MG Q8 04/08 0600 AC 04/10 PO 0523 Heparin Sodium 5,000 UNIT Q8 04/08 1400 AC 04/10 (Porcine) SC 0523 Insulin Aspart 10 UNITS ONCE ONE 04/10 0830 AC SC 04/10 0831 Insulin Aspart 6 UNITS ONCE ONE 04/09 1000 DC 04/09 SC 04/09 1001 1001 Insulin Aspart 0 AT BEDTIME 04/08 2100 AC 04/09 SC 210 Insulin Aspart 0 TIDAC 04/08 1700 AC 04/09 SC 1755 Insulin Detemir 16 UNITS DAILY 04/10 0900 AC LA Insulin Detemir 22 UNITS DAILY 04/08 0900 DC 04/09 SC 0927 Levothyroxine Sodium 0.137 MG DAILY 04/08 0900 AC 04/09 PO 0822 Metoprolol Succinate 25 MG DAILY 04/08 0900 AC 04/09 PO 0824 Morphine Sulfate 2 MG ONCE ONE 04/09 2345 DC 04/10 IV 04/09 2346 0016 Nicotine 21 MG DAILY 04/08 09 04/09 TOP 0822 Oxycodone/ 1 TAB Q4P PRN 04/08 2015 AC 04/09 Acetaminophen PO 1922 Promethazine HCl 25 MG Q8P PRN 04/08 0100 AC PO 04/15 0059 Ranolazine 500 MG BID 04/08 09 AC 04/09 PO 210 Findings Pertinent Lab/Donovan Results: Laboratory Tests 04/10 04/08 0635 1219 Chemistry Sodium Pending Potassium Pending Chloride Pending Carbon Dioxide Pending Anion Gap Pending BUN Pending Creatinine Pending BUN/Creatinine Ratio Pending Hematology CBC w Diff Pending WBC Pending RBC Pending Hgb Pending Hct Pending MCV Pending MCH Pending MCHC Pending RDW Pending Plt Count Pending MPV Pending Urines Urine Color (YEL,AMB,STR) YEL Urine Clarity (CLEAR) HAZY H Urine pH (5.0 - 8.0) 6.0 Ur Specific [place] (1.001 - 1.035) 1.010 Urine Protein (NEG,<30 MG/DL) NEG Urine Ketones (NEG) NEG Urine Nitrite (NEG) NEG Urine Bilirubin (NEG) NEG Urine Urobilinogen (0.1 - 1.0 EU/dl) 0.2 Ur Leukocyte Esterase (NEG) MOD H Ur Microscopic SEDIMENT EXAMINED Urine RBC (0 - 5 /HPF) 1-3 Urine WBC (0 - 2 /HPF) 10-15 H Ur Epithelial Cells (NONE,FEW) FEW Urine Bacteria (NEG/NONE) FEW H Urine Hemoglobin (NEG) NEG Urine Glucose (N MG/DL) NEG
--- NOTE | 2018-04-10 12:56 | PN- Infect Dx ---
Subjective Subjective: Afebrile. She continues to complain of pain in the left foot Objective Last 24 Hrs of Vital Signs/I&O Vital Signs Date Time Temp Pulse Resp B/P B/P Pulse O2 O2 Flow FiO2 Mean Ox Delivery Rate 04/10 0834 78 140/70 04/10 0833 78 140/70 04/10 0721 98.3 78 22 140/70 93 04/09 2208 98.2 83 22 130/76 100 Room Air 04/09 2107 98.2 83 18 130/76 04/09 1442 98.4 79 18 122/64 97 Room Air Intake & Output 04/10 1600 04/10 0800 04/10 0000 Intake Total 240 580 Output Total Balance 240 580 Intake, IV 100 Intake, Oral 240 480 Physical Exam Other Physical Findings: She appears comfortable in no acute distress Extremities left foot dressing intact; left leg with no erythema or edema Results Last 24 Hours of Lab Results: Laboratory Tests 04/10 04/10 0850 0635 Chemistry Sodium (137 - 145 mmol/L) 126 L Potassium (3.5 - 5.1 mmol/L) 5.7 H Chloride (98 - 107 mmol/L) 98 Carbon Dioxide (22 - 30 mmol/L) 21 L Anion Gap (5 - 16) 6 BUN (7 - 17 mg/dL) 20 H Creatinine (0.5 - 1.0 mg/dL) 1.1 H Estimated GFR (>60 ml/min) 52 L BUN/Creatinine Ratio (7 - 25 %) 18.2 Glucose (65 - 99 mg/dL) 529 *H Hematology CBC w Diff NO MAN DIFF REQ WBC (4.8 - 10.8 /CUMM) 8.0 RBC (4.20 - 5.40 /CUMM) 2.87 L Hgb (12.0 - 16.0 G/DL) 8.2 L Hct (37 - 47 %) 25.2 L MCV (81.0 - 99.0 FL) 87.8 MCH (27.0 - 31.0 PG) 28.4 MCHC (33.0 - 37.0 G/DL) 32.4 L RDW (11.5 - 14.5 %) 14.1 Plt Count (130 - 400 /CUMM) 463 H MPV (7.4 - 10.4 FL) 7.1 L Gran % (42.2 - 75.2 %) 65.7 Lymphocytes % (20.5 - 51.1 %) 23.8 Monocytes % (1.7 - 9.3 %) 6.8 Eosinophils % (0 - 5 %) 2.8 Basophils % (0.0 - 2.0 %) 0.9 Absolute Granulocytes (1.4 - 6.5 /CUMM) 5.3 Absolute Lymphocytes (1.2 - 3.4 /CUMM) 1.9 Absolute Monocytes (0.10 - 0.60 /CUMM) 0.5 Absolute Eosinophils (0.0 - 0.7 /CUMM) 0.2 Absolute Basophils (0.0 - 0.2 /CUMM) 0.1 Last 24 Hours of Donovan Results: OR culture April 11 labeled left foot bone positive for gram-negative rods and possible streptococcus Assessment/Plan ID Impression: Stable, with her temperatures and white blood cell count remaining normal, status post open, partial fourth ray resection of the left foot 2 days ago for osteomyelitis. Her OR culture is growing multiple organisms and she can be started on antibiotics pending final results, taking into account her Penicillin allergy. She is scheduled for return to the OR in the a.m. for further debridement and probable placement of a wound VAC. Suggestion: 1. Follow-up final OR culture 2. Await return to the OR in the a.m. 3. Begin Meropenem 1 g IV every 8 hours pending above
[2018-04-10 15:31] VITALS: BP 138/68
[2018-04-10 22:10] VITALS: BP 160/90
[2018-04-11 05:53] VITALS: BP 160/80
--- NOTE | 2018-04-11 07:03 | PN- Housestaff ---
See Addendum Subjective Follow-up For: Left foot fourth toe cellulitis Possible osteomyelitis Diabetes mellitus Hypertension Peripheral vascular disease Complaints: pain scale (0-10) Subjective: Pt was seen lying in bed in NAD. She complaint of left foot pain being 8/10. She was given IV tylenol. She slept well. No other complaints overnight Review of Systems Constitutional: Reports: no symptoms. EENTM: Reports: no symptoms. Cardiovascular: Reports: no symptoms. Respiratory: Reports: no symptoms. Gastrointestinal: Reports: no symptoms. Genitourinary: Reports: no symptoms. Musculoskeletal: Reports: no symptoms. Skin: Reports: no symptoms. Neurological/Psychological: Reports: no symptoms. Hematologic/Endocrine: Reports: no symptoms. Immunologic/Allergic: Reports: no symptoms. Objective Last 24 Hrs of Vital Signs/I&O Vital Signs Date Time Temp Pulse Resp B/P B/P Pulse O2 O2 Flow FiO2 Mean Ox Delivery Rate 04/11 1800 98.3 83 18 130/60 98 Room Air 04/11 1529 98.2 85 18 140/70 97 04/11 0749 98.8 90 20 160/80 04/11 0749 98.8 90 20 160/80 04/11 0553 98.8 90 20 160/80 99 Room Air 04/10 2210 160/100 04/10 2210 98.9 84 18 160/90 100 Room Air Intake & Output 04/11 1600 04/11 0800 04/11 0000 Intake Total 150 240 240 Output Total Balance 150 240 240 Intake, IV 30 Intake, Oral 120 240 240 Physical Exam General Appearance: Alert, Oriented X3, Cooperative, Mild Distress Skin: No Rashes, left foot cellulitis/osteomyelitis Skin Temp/Moisture Exam: Cool/Dry Sepsis Skin Exam (color): Normal for Ethnicity HEENT: Atraumatic, Mucous Membr. moist/pink Neck: Supple, No JVD Cardiovascular: Regular Rate, Normal S1, Normal S2, No Murmurs Lungs: Clear to Auscultation, Normal Air Movement Abdomen: Normal Bowel Sounds, Soft, No Tenderness, No Hepatospenomegaly, No Masses Neurological: Normal Speech, Sensation Intact Extremities: No Clubbing, No Cyanosis, Normal Pulses Vascular: Normal Pulses, Pulses Symmetrical Assessment/Plan Assessment: 52 year old female with PMH MS, Parkinson's disease, Huntingtons Dz, DM, MIx3 ( January 2017), Lupus, fibromyalgia, iron def anemia, hypothyroidism presenting to ED under the direction of Dr. Kurtz who saw her in his office. Patient reports she had surgery to her left foot 4th digit on 02/14 with subsequent ' staph bacterial infection'. She was placed on multiple abx and completed that course one week ago. She reports three day history of LLE swelling and redness. Her left 4th digit has sutures in place and is actively draining purulent drainage. She reports associated n/v/chills. Left foot cellulitis/Osteomyelitis: Pt is NPO to go for I & D and wound closure today Plan: Shireen. Meropenem every 8 hours IV. It will be continued after D/c as well. So, plan is to get PICC line for which the patient signed the consent form. DM Type I: Upon discussion with Dr. Felipe (Endocrinology) he recommended the following insulin upon d/c: #16 units lantus #Novolog 2 units with each meal & a sliding scale of 1 unit for every 50 above 150 Hyperkalemia: may be medication related Plan: continue to monitor, ECG to check for changes Thrombocytosis: likely reactive to infection Plan: continue to monitor Active smoker: Actively uses tobacco Plan: Nicotine patch 21mg as per patient request DVT prophylaxis: heparin 5000units subcu/ALP RLE/ ambulation Code Status: DNR/DNI Problem List: 1. Osteomyelitis 2. Cellulitis 3. Diabetes mellitus type 1 4. HX LUPUS 5. Hypothyroidism 6. MULTIPLE SCLEROSIS 7. Parkinson's disease Pain Ratin Pain Location: Left foot Pain Goal: Pain 4 or less Pain Plan: Follow pain pathway Tomorrow's Labs & Rationales: CBC, BEP
--- NOTE | 2018-04-11 12:43 | Operative Report ---
Operative/Inv Procedure Report Surgery Date: 04/11/18 Name of Procedure: 1 open incision and drainage deep to the deep fascia with exposure of the extensor and flexor tendon and tendon sheath multiple sites left foot 2 partial, revisional fourth ray resection left 3 intraoperative ministration of negative pressure with the 4 intraoperative menstruation ankle block anesthesia 5 excisional debridement Pre-Operative Diagnosis: 1 open necrotic wound left 2 osteomyelitis left foot 3 diabetic peripheral neuropathy 4 peripheral arterial disease Post-Operative Diagnosis: The same Estimated Blood Loss: less than 50ml Surgeon/Counter Stacker: MICHA LOZADA DPM Anesthesia: moderate sedation, block Operative/Procedure Note Note: After obtaining informed consent the patient was brought to the operating room and placed on the operating table in the supine position. The patient was then securely fastened to the operating table utilizing a safety belt. After administration of IV sedation, 10 cc of 0.5% Marcaine plain was infiltrated about the patient's left ankle. Left foot and ankle were scrubbed, prepped and draped in the usual aseptic manner. Dr. Radford and left foot, where a large full -thickness necrotic was identified. A 15 blade was utilized sharply advise skin margins. The dissection was then carried down deep to the deep fascia with exposure of the extensor and flexor tendon and tendon sheath multiple sites left foot. All necrotic, nonviable infected tissue was sharply evacuated from wound bed. The dissection then continued proximally, where the periosteum overlying the stump of the fourth metatarsal was incised and reflected. Sagittal bone saw was utilized to resect the distal 2 cm of exposed bone. Specimen sent for pathologic inspection. The open wound was then irrigated with 3 L of normal sterile saline infused with 50,000 units of bacitracin. Following this, the foot was redraped and the surgeons top gloves were exchanged for clean gloves. Any bleeding vessels identified were cauterized or ligated as encountered. Next , negative pressure wound therapy was placed about the open wound, followed by the application of Kerlix and an Anthony wrap. The patient was noted to tolerate both procedure and anesthesia well and the patient was transported from the operating room to recovery with vital signs stable.
--- NOTE | 2018-04-11 14:20 | PN- Vascular Surgery ---
Surgical Brief Attending Note Brief Attending Note: Plan of care has been discussed with Dr. Oneil. Patient is known to have PAD and is scheduled to undergo an outpatient angiogram with Dr. Oneil on Saturday April 14, 2018. She is stable for discharge from hospital prior to that date from a vascular surgery standpoint.
--- NOTE | 2018-04-11 14:48 | PN- Infect Dx ---
Subjective Subjective: Afebrile. She complains of pain in the left foot. Objective Last 24 Hrs of Vital Signs/I&O Vital Signs Date Time Temp Pulse Resp B/P B/P Pulse O2 O2 Flow FiO2 Mean Ox Delivery Rate 04/11 0749 98.8 90 20 160/80 04/11 0749 98.8 90 20 160/80 04/11 0553 98.8 90 20 160/80 99 Room Air 04/10 2210 160/100 04/10 2210 98.9 84 18 160/90 100 Room Air 04/10 1531 98.9 86 22 138/68 98 Room Air Intake & Output 04/11 1600 04/11 0800 04/11 0000 Intake Total 240 240 Output Total Balance 240 240 Intake, Oral 240 240 Physical Exam Other Physical Findings: She appears comfortable in no acute distress Extremities left foot dressing intact, with wound VAC in place Results Last 24 Hours of Lab Results: No labs from today Last 24 Hours of Donovan Results: OR culture April 08 positive for Pseudomonas sensitive to all antibiotics tested, Enterococcus sensitive to Ampicillin and a second gram-positive cocci Assessment/Plan ID Impression: Stable, with her temperatures and white blood cell count remaining normal, on Meropenem for a polymicrobial osteomyelitis, status post partial, revisional fourth ray resection of the left foot earlier today. She will require a 4 week course of IV antibiotics for presumed residual osteomyelitis counting from today 's debridement. Suggestion: 1. Would obtain a postop baseline ESR and x-ray of the left foot 2. Await placement of the PICC 3. Follow-up final OR culture 4. Continue Meropenem to plan on a 4 week course of antibiotics from today ( until May 09) 5. Weekly ESR while on Meropenem
--- NOTE | 2018-04-11 15:13 | Patient Discharge Instructions ---
Discharge Instructions General Discharge Information You were seen/treated for: Osteomyelitis You had these procedures: Left foot toe amputation and placement of wound vac Special Instructions: Follow up with your pcp within 1 week Follow up with Dr. Kurtz within 1 week Will need to check ESR weekly Follow up with Dr. [facility]autista [facility] for Hyperbaric chamber therapy Please note: per endocrinology you should take lantus 4 units tonight and then resume your regular dose of lantus 22 units qhs nightly Please note: complete your full course of antibitoic therapy until May 09 Acute Coronary Syndrome Inclusion Criteria At DC or during hospital stay patient has or had the following: ACS DIAGNOSIS No Discharge Core Measures Meds if any: Prescribed or Continued at Discharge Meds if any: NOT Prescribed or Continued at Discharge Congestive Heart Failure Inclusion Criteria At DC or during hospital stay patient has or had the following: CHF DIAGNOSIS No Discharge Core Measures Meds if any: Prescribed or Continued at Discharge Meds if any: NOT Prescribed or Continued at Discharge Cerebrovascular accident Inclusion Criteria At DC or during hospital stay patient has or had the following: CVA/TIA Diagnosis No Discharge Core Measures Meds if any: Prescribed or Continued at Discharge Meds if any: NOT Prescribed or Continued at Discharge Venous thromboembolism Inclusion Criteria VTE Diagnosis No VTE Type NONE VTE Confirmed by (Test) NONE Discharge Core Measures - Per Current guidelines, there needs to be overlap - treatment for the first 5 days of Warfarin therapy. - If discharged on Warfarin prior to 5 days of - overlap therapy, the patient will need to be - assessed for post discharge needs including - *Post discharge parental anticoagulation - *Warfarin and/or parental anticoagulation education - *Follow up date to check INR post discharge At least 5 days overlap therapy as Inpatient No Meds if any: Prescribed or Continued at Discharge Note: Overlap Therapy is Warfarin and Anticoagulant Meds if any: NOT Prescribed or Continued at Discharge
[2018-04-11 15:29] VITALS: BP 140/70
--- NOTE | 2018-04-11 16:18 | RADIOLOGY REPORT ---
EXAMINATION: XR PORTABLE CHEST CLINICAL INFORMATION: Right arm PICC placement COMPARISON: 04/08/2018 TECHNIQUE: AP portable upright view of the chest FINDINGS: Right-sided PICC line terminates at the cavoatrial junction. Lungs are clear. No consolidation, pneumothorax, or pleural effusion. Cardiac and mediastinal contours are normal. Pulmonary vasculature is unremarkable. Osseous structures are unremarkable. IMPRESSION: Right PICC line terminates at the cavoatrial junction. No acute findings.
--- NOTE | 2018-04-11 16:23 | RADIOLOGY REPORT ---
EXAMINATION: XR FOOT, LEFT CLINICAL INFORMATION: Pain. Rule out osteomyelitis left foot. Status post post I and D, wound vacuum. COMPARISON: None TECHNIQUE: AP, lateral, and oblique views of the left foot. FINDINGS: The fourth toe is surgically absent status post transmetatarsal amputation at the level of the metatarsal diaphysis. There is a soft tissue defect at the surgical site with soft tissue gas. Soft tissues are swollen in this region. Amputation margin at the fourth metatarsal is sharp. A wound VAC is in place. There is mild generalized osteopenia. No focal osteolysis/osteopenia is seen within the other digits to indicate additional areas of osteomyelitis. There is chronic remodeling articular surface erosion at the second toe distal phalanx which is likely due to marked chronic osteoarthritis or prior injury. IMPRESSION: Postsurgical changes of transmetatarsal amputation of the fourth toe. No specific radiographic findings of persistent osteomyelitis. If there is high clinical suspicion due to the clinical circumstances, consider MRI with and without contrast for additional sensitivity and specificity.
--- NOTE | 2018-04-11 16:31 | PN- Diabetes ---
Assessment/Plan Diabetes Assessment: This is a 52 year old lady with type 1 diabetes, BG on the lower side this morning. She has received 14 units of Levemir last night and a few doses of Novolog. Her home dose is 20 units of Lantus daily with 3 to 5 units of Novolog for meals. Plan: She can take 16 units of Lantus daily after discharge. Continue her home Novolog scale for meals and hyperglycemia. Follow up with Dr. Poole. Discussed with house staff. Subjective Subjective: I was called that the patient will be discharged today. Objective Last 24 Hrs of Vital Signs/I&O Vital Signs Date Time Temp Pulse Resp B/P B/P Pulse O2 O2 Flow FiO2 Mean Ox Delivery Rate 04/11 1529 98.2 85 18 140/70 97 04/11 0749 98.8 90 20 160/80 04/11 0749 98.8 90 20 160/80 04/11 0553 98.8 90 20 160/80 99 Room Air 04/10 2210 160/100 04/10 2210 98.9 84 18 160/90 100 Room Air Intake & Output 04/11 1600 04/11 0800 04/11 0000 Intake Total 150 240 240 Output Total Balance 150 240 240 Intake, IV 30 Intake, Oral 120 240 240
[2018-04-11] MEDS ORDERED: NOVOLOG100 UNIT/2 SC (16:34)
[2018-04-11] MEDS ORDERED: LANTUS100 UNIT/1 SC (16:34)
[2018-04-11 18:00] VITALS: BP 130/60
[2018-04-11 22:09] VITALS: BP 130/70
[2018-04-12 06:16] VITALS: BP 146/74
--- NOTE | 2018-04-12 08:36 | PN- Housestaff ---
See Addendum Subjective Follow-up For: Left foot fourth toe cellulitis Possible osteomyelitis Diabetes mellitus Hypertension Peripheral vascular disease Subjective: She was seen and examined, sitting comfortably in bed got PICC line. She is doing well. Her paperwork regarding wound VAC is pending so she will be discharged on Saturday. Denies any headache/dizziness/chest pain/dyspnea/abdominal discomfort/burning micturition. Review of Systems Constitutional: Reports: see HPI. Objective Last 24 Hrs of Vital Signs/I&O Vital Signs Date Time Temp Pulse Resp B/P B/P Pulse O2 O2 Flow FiO2 Mean Ox Delivery Rate 04/12 0944 94 136/73 04/12 0944 94 136/73 04/12 0616 99.1 90 20 146/74 94 04/11 2209 99.1 84 17 130/70 99 Room Air 04/11 2207 84 130/70 04/11 1800 98.3 83 18 130/60 98 Room Air 04/11 1529 98.2 85 18 140/70 97 Intake & Output 04/12 1600 04/12 0804/12 0000 Intake Total 560 800 Output Total 0 Balance 560 800 Intake, IV 80 Intake, Oral 480 800 Number 0 0 Bowel Movements Output, 0 Drainage Physical Exam General Appearance: Alert, Oriented X3, Cooperative, No Acute Distress Skin: No Rashes Skin Temp/Moisture Exam: Warm/Dry Sepsis Skin Exam (color): Normal for Ethnicity HEENT: Atraumatic Neck: Supple Cardiovascular: Normal S1, Normal S2, tachycardia Lungs: Clear to Auscultation, Normal Air Movement Neurological: Normal Speech Extremities: left foot covered in bandage. Current Medications: Current Medications Sig/Kyra Start time Last Medication Dose Route Stop Time Status Admin Acetaminophen 1,000 MG Q6P PRN 04/08 1330 AC N/A 1 UNIT IV Acetaminophen 650 MG Q6P PRN 04/08 0030 AC PO Atorvastatin Calcium 40 MG DAILY 04/08 900 AC 04/12 PO 0943 Cilostazol 100 MG BID 04/08 09 AC 04/12 PO 0945 Gabapentin 600 MG Q8 04/08 0600 AC 04/12 PO 0626 Heparin Sodium 5,000 UNIT Q8 04/08 1400 AC 04/12 (Porcine) SC 0626 Hydromorphone HCl 0 .STK-MED ONE 04/11 1345 DC .ROUTE Hydromorphone HCl 0 .STK-MED ONE 04/11 1330 DC .ROUTE Hydromorphone HCl 0 .STK-MED ONE 04/11 1315 DC .ROUTE Insulin Aspart 0 AT BEDTIME 04/08 2100 04/09 [place] 2105 Insulin Aspart 0 TIDAC 04/08 1700 AC 04/12 SC 0943 Insulin Detemir 14 UNITS Q12 04/10 2100 AC 04/12 SC 0942 Insulin Human Regular 0 Q6 04/10 2359 DC 04/11 SC 0034 Levothyroxine Sodium 0.137 MG DAILY 04/08 09 AC 04/12 PO 1047 Meropenem 1 GM Q8 04/10 1417 AC 04/12 IV 0626 Metoprolol Succinate 25 MG DAILY 04/08 09 AC 04/12 PO 0944 Morphine Sulfate 2 MG Q6P PRN 04/11 2330 AC 04/12 IV 1102 Nicotine 21 MG DAILY 04/08 09 04/12 TOP 0945 Oxycodone HCl 5 MG Q4-6 PRN 04/11 1600 AC 04/12 PO 0943 Oxycodone/ 1 TAB Q4P PRN 04/08 2015 04/12 Acetaminophen PO 0627 Patient Medication 1 ED ONE ONE 04/11 1800 DC 04/11 Teaching ED 04/11 1801 1933 Promethazine HCl 25 MG Q8P PRN 04/08 0100 04/11 PO 04/15 0059 2206 Ranolazine 500 MG BID 04/08 09 04/12 PO 0944 Last 24 Hrs of Lab/Donovan Results Last 24 Hrs of Labs/Mics: Laboratory Tests 04/12/18 0630: Anion Gap 4 L, Estimated GFR > 60, BUN/Creatinine Ratio 18.9, CBC w Diff NO MAN DIFF REQ, RBC 3.16 L, MCV 87.3, MCH 28.9, MCHC 33.1, RDW 13.7, MPV 7.1 L, Gran % 72.8, Lymphocytes % 19.5 L, Monocytes % 6.0, Eosinophils % 1.0, Basophils % 0.7, Absolute Granulocytes 5.6, Absolute Lymphocytes 1.5, Absolute Monocytes 0.5 , Absolute Eosinophils 0.1, Absolute Basophils 0.1 Assessment/Plan Assessment: 52 year old female with PMH MS, Parkinson's disease, Huntingtons Dz, DM, MIx3 ( January 2017), Lupus, fibromyalgia, iron def anemia, hypothyroidism presenting to ED under the direction of Dr. Kurtz who saw her in his office. Patient reports she had surgery to her left foot 4th digit on 02/14 with subsequent ' staph bacterial infection'. She was placed on multiple abx and completed that course one week ago. She reports three day history of LLE swelling and redness. Her left 4th digit has sutures in place and is actively draining purulent drainage. She reports associated n/v/chills. Problem list #1 left foot osteomyelitis #2 type 1 diabetes mellitus #3 nicotine dependence #4 peripheral vascular disease #5 history of coronary artery disease, hypothyroidism, hypertension, neuropathic pain Assessment and plan Patient is on IV meropenem which will be continued as an outpatient, her paperwork regarding wound VAC for home is pending, which will be done on Saturday therefore she will stay over the weekend. Patient sees Dr. Oneil for her peripheral vascular disease, she is due to get a stent which can be done as an inpatient now since she will be staying over the weekend. Her pain is adequately controlled on morphine and oxycodone. Morning blood sugar 67, will decrease nighttime Levemir to 4 units and continue the same for the morning. We will continue the home meds including cilostazol, gabapentin, levothyroxine, atorvastatin, metoprolol, ranexa. DVT ppx SC heprin DNR/DNI Problem List: 1. Osteomyelitis Pain Ratin Pain Location: left foot Pain Goal: Pain 4 or less Pain Plan: tylenol, morphine, oxycodon Tomorrow's Labs & Rationales: no labs
[2018-04-12 08:37] LABS: ABSOLUTE BASOPHIL COUNT 0.1 /CUMM (0.0-0.2); ABSOLUTE EOSINOPHIL COUNT 0.1 /CUMM (0.0-0.7); ABSOLUTE GRANULOCYTE CT 5.6 /CUMM (1.4-6.5); ABSOLUTE LYMPH COUNT 1.5 /CUMM (1.2-3.4); ABSOLUTE MONOCYTE COUNT 0.5 /CUMM (0.10-0.60); BASOPHIL % 0.7 % (0.0-2.0); GRANULOCYTE % 72.8 % (42.2-75.2); HEMATOCRIT 27.6 % (37-47); MEAN CORPUSCULAR HGB 28.9 PG (27.0-31.0); MEAN CORPUSCULAR HGB CONC 33.1 G/DL (33.0-37.0); MEAN CORPUSCULAR VOLUME 87.3 FL (81.0-99.0); MEAN PLATELET VOLUME 7.1 FL (7.4-10.4); PLATELET COUNT 487 /CUMM (130-400); RBC DISTRIBUTION WIDTH 13.7 % (11.5-14.5); RED BLOOD CELL CT 3.16 /CUMM (4.20-5.40); WHITE BLOOD CELL COUNT 7.7 /CUMM (4.8-10.8)
--- NOTE | 2018-04-12 10:48 | PN- Diabetes ---
Assessment/Plan Diabetes Assessment: This is a 52 year old lady with type 1 diabetes, Her home dose is 20 units of Lantus daily with 3 to 5 units of Novolog for meals. Plan: Please reduce night time levemir to 4 units. Keep the same dose of Novolog Change diet to carbohydrate level 1 diet. Will follow Subjective Subjective: Her glucose level went down from 242 to 123 despite no Novolog last night. Objective Last 24 Hrs of Vital Signs/I&O Vital Signs Date Time Temp Pulse Resp B/P B/P Pulse O2 O2 Flow FiO2 Mean Ox Delivery Rate 04/12 0944 94 136/73 04/12 0944 94 136/73 04/12 0616 99.1 90 20 146/74 94 04/11 2209 99.1 84 17 130/70 99 Room Air 04/11 2207 84 130/70 04/11 1800 98.3 83 18 130/60 98 Room Air 04/11 1529 98.2 85 18 140/70 97 Intake & Output 04/12 1600 04/12 0800 04/12 0000 Intake Total 560 800 Output Total 0 Balance 560 800 Intake, IV 80 Intake, Oral 480 800 Number 0 0 Bowel Movements Output, 0 Drainage
[2018-04-12 15:06] VITALS: BP 132/72
[2018-04-12 21:16] VITALS: BP 117/71
[2018-04-13 06:25] VITALS: BP 150/74
--- NOTE | 2018-04-13 07:54 | PN- Housestaff ---
See Addendum Subjective Follow-up For: Left foot fourth toe cellulitis Possible osteomyelitis Diabetes mellitus Hypertension Peripheral vascular disease Subjective: I visited the patient and examined her, she was sitting up in her bed, alert and oriented 3, in no acute distress. She did not complain of pain, received pain medication. No major complaints by the patient or nurse reported overnight. Nurse reported that over the past 48 hours there was no discharge by the Hemovac. Review of Systems Constitutional: Reports: see HPI. Objective Last 24 Hrs of Vital Signs/I&O Vital Signs Date Time Temp Pulse Resp B/P B/P Pulse O2 O2 Flow FiO2 Mean Ox Delivery Rate 04/13 0625 98.3 93 20 150/74 96 04/12 2116 98.2 86 19 117/71 98 Room Air 04/12 2106 86 117/71 04/12 1506 98.1 92 18 132/72 99 Room Air Intake & Output 04/13 1600 04/13 0800 04/13 0000 Intake Total 520 270 Output Total 10 0 Balance 510 270 Intake, IV 40 30 Intake, Oral 480 240 Number 0 0 Bowel Movements Output, 10 0 Drainage Physical Exam General Appearance: Alert, Oriented X3, Cooperative, No Acute Distress Skin: No Rashes Skin Temp/Moisture Exam: Warm/Dry Sepsis Skin Exam (color): Normal for Ethnicity HEENT: Atraumatic Cardiovascular: Regular Rate, Normal S1, Normal S2 Abdomen: Normal Bowel Sounds, Soft, No Tenderness Extremities: No Clubbing, No Cyanosis, Left foot with dressing and hemo-vac in place, Vascular: Normal Pulses, Pulses Symmetrical Assessment/Plan Assessment: 52 year old female with PMH MS, Parkinson's disease, Huntingtons Dz, DM, MIx3 ( January 2017), Lupus, fibromyalgia, iron def anemia, hypothyroidism presenting to ED under the direction of Dr. Kurtz who saw her in his office. Patient reports she had surgery to her left foot 4th digit on 02/14 with subsequent ' staph bacterial infection'. She was placed on multiple abx and completed that course one week ago. She reports three day history of LLE swelling and redness. Her left 4th digit has sutures in place and is actively draining purulent drainage. She reports associated n/v/chills. Patient had revision of the surgery and Hemovac was inserted. Left foot cellulitis/Osteomyelitis: Pt is NPO to go for I & D and wound closure today Plan: Shireen. Meropenem every 8 hours IV. It will be continued after D/c as well. So, plan is to get PICC line for which the patient signed the consent form. DM Type I: Upon discussion with Dr. Felipe (Endocrinology). Plan: Insulin detemir 14 units a.m., 4 units p.m., aspart insulin dose modified by the manager of project management. Consult was appreciated. Hyperkalemia: may be medication related, condition resolved Plan: continue to monitor, ECG to check for changes. Thrombocytosis: likely reactive to infection Plan: continue to monitor Active smoker: Actively uses tobacco Plan: Nicotine patch 21mg as per patient request We will contact Dr. Oneil, to cancel her appointment for surgery at tomorr morning, and we will arrange for her to have the surgery on Saturday by Dr. Oneil in the hospital. DVT prophylaxis: heparin 5000units subcu/ALP RLE/ ambulation Code Status: DNR/DNI Problem List: 1. Osteomyelitis 2. Cellulitis 3. Diabetes mellitus type 1 4. HX LUPUS 5. Hypothyroidism 6. MULTIPLE SCLEROSIS 7. Parkinson's disease Pain Ratin Pain Location: Left foot, this evaluation was on after pain medication Pain Goal: Pain 4 or less Pain Plan: Pain pathway Tomorrow's Labs & Rationales: As indicated
--- NOTE | 2018-04-13 11:32 | PN- Diabetes ---
Assessment/Plan Diabetes Assessment: This is a 52 year old lady with type 1 diabetes, Her home dose is 20 units of Lantus daily with 3 to 5 units of Novolog for meals. Plan: Continue Levemir at the current dose. Increase Novolog accroding to the scale below Inpatient Diabetes Orders Before Each Meal: < 80 mg/dl: 0 80-100 mg/dl: 3 101-120 mg/dl: 4 121-150 mg/dl: 4 151-200 mg/dl: 5 201-250 mg/dl: 6 251-300 mg/dl: 7 301-350 mg/dl: 8 351-400 mg/dl: 9 > 400 mg/dl: 10 Bedtime: < 80 mg/dl: 0 80-100 mg/dl: 0 101-120 mg/dl: 0 121-150 mg/dl: 0 151-200 mg/dl: 0 201-250 mg/dl: 1 251-300 mg/dl: 2 301-350 mg/dl: 3 351-400 mg/dl: 4 > 400 mg/dl: 5 Subjective Subjective: His BG went up significantly after dinner yesterday Objective Last 24 Hrs of Vital Signs/I&O Vital Signs Date Time Temp Pulse Resp B/P B/P Pulse O2 O2 Flow FiO2 Mean Ox Delivery Rate 04/13 0625 98.3 93 20 150/74 96 04/12 211 98.2 86 19 117/71 98 Room Air 04/12 2106 86 117/71 04/12 1506 98.1 92 18 132/72 99 Room Air Intake & Output 04/13 1600 04/13 0800 04/13 0000 Intake Total 520 270 Output Total 10 0 Balance 510 270 Intake, IV 40 30 Intake, Oral 480 240 Number 0 0 Bowel Movements Output, 10 0 Drainage
[2018-04-13 14:40] VITALS: BP 112/62
[2018-04-13 21:25] VITALS: BP 136/76
[2018-04-14 06:32] VITALS: BP 136/72
--- NOTE | 2018-04-14 06:34 | PN- Housestaff ---
See Addendum Subjective Follow-up For: Left foot fourth toe cellulitis Possible osteomyelitis Diabetes mellitus Hypertension Peripheral vascular disease Subjective: I saw the patient this morning, she was sitting in her bed, alert and oriented 3, in no acute distress. She mentions that that sometimes during the day she feels the pain in her feet, she tries to mobilize, she mentions that there has been no discharge from the Hemovac for the past 3 days. She is going to be n.p.o. from midnight to go to the OR with Dr. Oneil. Review of Systems Constitutional: Reports: see HPI. Objective Last 24 Hrs of Vital Signs/I&O Vital Signs Date Time Temp Pulse Resp B/P B/P Pulse O2 O2 Flow FiO2 Mean Ox Delivery Rate 04/14 0632 98.1 82 18 136/72 96 04/13 2159 80 136/76 04/13 2125 97.5 80 20 136/76 100 Room Air 04/13 1440 98.6 82 18 112/62 100 Intake & Output 04/14 0800 04/14 0000 04/13 1600 Intake Total 300 700 Output Total Balance 300 700 Intake, Oral 300 700 Number 1 Bowel Movements Physical Exam General Appearance: Alert, Oriented X3, Cooperative, No Acute Distress Skin: No Rashes Skin Temp/Moisture Exam: Warm/Dry Cardiovascular: Regular Rate, Normal S1, Normal S2 Lungs: Clear to Auscultation, Normal Air Movement Assessment/Plan Assessment: 52 year old female with PMH MS, Parkinson's disease, Huntingtons Dz, DM, MIx3 ( January 2017), Lupus, fibromyalgia, iron def anemia, hypothyroidism presenting to ED under the direction of Dr. Kurtz who saw her in his office. Patient reports she had surgery to her left foot 4th digit on 02/14 with subsequent ' staph bacterial infection'. She was placed on multiple abx and completed that course one week ago. She reports three day history of LLE swelling and redness. Her left 4th digit has sutures in place and is actively draining purulent drainage. She reports associated n/v/chills. Patient had revision of the surgery and Hemovac was inserted. Left foot cellulitis/Osteomyelitis: Pt is NPO to go for I & D and wound closure today Plan: Shireen. Meropenem every 8 hours IV. It will be continued after D/c as well. So, plan is to get PICC line for which the patient signed the consent form. Paperwork for Hemovac was completed and faxed by Dr. Guzman. She will be n.p.o. for tomorr morning OR by Dr. Oneil. DM Type I: Upon discussion with Dr. Felipe (Endocrinology). Plan: Insulin detemir 14 units a.m., 4 units p.m., aspart insulin dose modified by the bellstand attendant. Consult was appreciated. Hyperkalemia: may be medication related, condition resolved Plan: continue to monitor, ECG to check for changes. Thrombocytosis: likely reactive to infection Plan: continue to monitor Active smoker: Actively uses tobacco Plan: Nicotine patch 21mg as per patient request We will contact Dr. Oneil, to cancel her appointment for surgery at tom[facility] morning, and we will arrange for her to have the surgery on Saturday by Dr. Oneil in the hospital. DVT prophylaxis: heparin 5000units subcu/ALP RLE/ ambulation Code Status: DNR/DNI Problem List: 1. Osteomyelitis 2. Cellulitis 3. Diabetes mellitus type 1 4. HX LUPUS 5. Hypothyroidism 6. MULTIPLE SCLEROSIS 7. Parkinson's disease Pain Ratin Pain Location: Left lower extremity Pain Goal: Remain pain free Pain Plan: As indicated per pain pathway Tomorrow's Labs & Rationales: As indicated
--- NOTE | 2018-04-14 08:30 | PN- Diabetes ---
Assessment/Plan Diabetes Assessment: The patient feels okay. She states she will return to the OR tomorrow for placement of some stents in the left leg. The patient's blood sugars are in fairly good control. Plan: Suggest continue with the present insulin. If the patient is made n.p.o. at midnight tonight we should begin D5 half-normal saline at 75 cc/h. The patient can have the 4 units of Levemir at 10 PM tonight. When the IV fluids are started we should place the patient on NovoLog coverage every 4 hours for sugars above 150. NovoLog coverage every 4 hours while n.p.o. should be less than 150 give no insulin 151-200 give 2 units NovoLog, 201-250 give 3 units NovoLog, 251- 300 give 4 units NovoLog, 301-350 give 5 units NovoLog, 351-400 give 6 units NovoLog. When the patient resumes her usual diet we should resume her present insulin regimen including the premeal regimen that is now in place. Objective Last 24 Hrs of Vital Signs/I&O Vital Signs Date Time Temp Pulse Resp B/P B/P Pulse O2 O2 Flow FiO2 Mean Ox Delivery Rate 04/14 0632 98.1 82 18 136/72 96 04/13 2159 80 136/76 04/13 2125 97.5 80 20 136/76 100 Room Air 04/13 1440 98.6 82 18 112/62 100 Intake & Output 04/14 1600 04/14 0804/14 0000 Intake Total 300 Output Total Balance 300 Intake, Oral 300 Vital Signs Date Time Temp Pulse Resp B/P B/P Pulse O2 O2 Flow FiO2 Mean Ox Delivery Rate 04/14 0632 98.1 82 18 136/72 96 04/13 2159 80 136/76 04/13 2125 97.5 80 20 136/76 100 Room Air 04/13 1440 98.6 82 18 112/62 100 Intake & Output 04/14 1600 04/14 0000 Intake Total 300 Output Total Balance 300 Intake, Oral 300 Physical Exam General Appearance: alert, awake, comfortable Current Medications: Current Medications Sig/Kyra Start time Last Medication Dose Route Stop Time Status Admin Acetaminophen 1,000 MG Q6P PRN 04/08 1330 AC N/A 1 UNIT IV Acetaminophen 650 MG Q6P PRN 04/08 0030 AC PO Atorvastatin Calcium 40 MG DAILY 04/08 0900 AC 04/13 PO 0844 Cilostazol 100 MG BID 04/08 0900 AC 04/13 PO 2158 Gabapentin 600 MG Q8 04/08 0600 AC 04/14 PO 0551 Heparin Sodium 5,000 UNIT Q8 04/08 1400 AC 04/14 (Porcine) SC 0552 Insulin Aspart 0 AT BEDTIME 04/08 2100 AC 04/12 SC 2105 Insulin Aspart 0 TIDAC 04/08 1700 AC 04/13 SC 1733 Insulin Detemir 14 UNITS DAILY 04/13 0900 AC 04/13 SC 0844 Insulin Detemir 4 UNITS AT BEDTIME 04/12 2100 AC 04/13 SC 2200 Levothyroxine Sodium 0.137 MG DAILY 04/08 09 AC 04/13 PO 0845 Meropenem 1 GM Q8 04/10 1417 AC 04/14 IV 0552 Metoprolol Succinate 25 MG DAILY 04/08 09 AC 04/13 PO 0845 Morphine Sulfate 2 MG Q6P PRN 04/11 2330 AC 04/14 IV 0416 Nicotine 21 MG DAILY 04/08 09 AC 04/13 TOP 0846 Oxycodone HCl 5 MG Q4-6 PRN 04/11 1600 AC 04/14 PO 0634 Oxycodone/ 1 TAB Q4P PRN 04/08 2015 AC 04/14 Acetaminophen PO 0635 Promethazine HCl 25 MG Q8P PRN 04/08 0100 AC 04/11 PO 04/15 0059 2206 Ranolazine 500 MG BID 04/08 09 AC 04/13 PO 2159 Findings Pertinent Lab/Dnoovan Results: Laboratory Tests 04/14 0808 Chemistry Sodium Pending Potassium Pending Chloride Pending Carbon Dioxide Pending Anion Gap Pending BUN Pending Creatinine Pending BUN/Creatinine Ratio Pending
--- NOTE | 2018-04-14 11:54 | PN- Infect Dx ---
Subjective Subjective: Afebrile. She notes some discomfort in the left foot. Objective Last 24 Hrs of Vital Signs/I&O Vital Signs Date Time Temp Pulse Resp B/P B/P Pulse O2 O2 Flow FiO2 Mean Ox Delivery Rate 04/14 827 80 136/72 04/14 0632 98.1 82 18 136/72 96 04/13 2159 80 136/76 04/13 2125 97.5 80 20 136/76 100 Room Air 04/13 1440 98.6 82 18 112/62 100 Intake & Output 04/14 1600 04/14 0800 04/14 0000 Intake Total 300 Output Total Balance 300 Intake, Oral 300 Physical Exam Other Physical Findings: She appears comfortable in no acute distress Extremities left foot dressing intact, with wound VAC in place; PICC in the right upper extremity with no inflammation at the site Results Last 24 Hours of Lab Results: Laboratory Tests 04/14 04/14 1028 0808 Chemistry Sodium (137 - 145 mmol/L) Pending 129 L Potassium (3.5 - 5.1 mmol/L) Pending 5.3 H Chloride (98 - 107 mmol/L) Pending 98 Carbon Dioxide (22 - 30 mmol/L) Pending 27 Anion Gap (5 - 16) Pending 5 BUN (7 - 17 mg/dL) Pending 16 Creatinine (0.5 - 1.0 mg/dL) Pending 0.9 Estimated GFR (>60 ml/min) > 60 BUN/Creatinine Ratio (7 - 25 %) Pending 17.8 Last 24 Hours of Donovan Results: OR culture April 08 labeled left foot bone positive for Pseudomonas sensitive to all antibiotics tested, Enterococcus sensitive to Ampicillin and coag negative Staph Assessment/Plan ID Impression: Stable, with her temperatures and white blood cell count remaining normal, on Meropenem for a presumed residual osteomyelitis of the left foot, status post partial, revisional fourth ray resection of the left foot 3 days ago for polymicrobial osteomyelitis. Her OR culture grew coag negative Staph, in addition to the Pseudomonas and Enterococcus, but suspect this represents a contaminant and, therefore, should not require treatment. The left leg revascularization, scheduled as an outpatient, will apparently be done in the a.m. Suggestion: 1. Would obtain a postop baseline ESR and x-ray of the left foot 2. Await revascularization of the left leg, scheduled for the a.m. 3. Continue Meropenem to plan on a 4 week course of antibiotics (until May 09) 4. Weekly ESR while on Meropenem
[2018-04-14 14:21] VITALS: BP 140/82
--- NOTE | 2018-04-14 16:41 | RADIOLOGY REPORT ---
EXAMINATION: XR FOOT, LEFT CLINICAL INFORMATION: Postoperative. Osteomyelitis. COMPARISON: 04/11/2018 TECHNIQUE: 3 views of the left foot. 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 Again, the margin of the amputated 4th metatarsal is sharp. No acute erosions or periostitis. The metatarsophalangeal joint spaces are normal. Lisfranc joint is intact. Again noted are old articular surface erosions of the deformed 2nd DIP joint. Soft tissues are mildly swollen throughout the foot. IMPRESSION: No acute findings within the left foot compared to 04/11/2018. There is no radiographic evidence of osteomyelitis of the residual 4th metatarsal.
[2018-04-14 22:01] VITALS: BP 130/64
--- NOTE | 2018-04-15 06:25 | PN- Housestaff ---
Bobo Castillo 04/15/18 0625: Subjective Follow-up For: Left foot cellulitis/osteomyelitis DM HTN Subjective: Patient seen and examined this am. She went for the OR in the morning. When she came back, she was pleasant, NAD, AAOx3. Sitting and breathing comfortably on room air alongisde family. She remains afebrile, no SOB. No other acute complains. Review of Systems Constitutional: Reports: see HPI. EENTM: Reports: no symptoms. Cardiovascular: Reports: no symptoms. Respiratory: Reports: no symptoms. Gastrointestinal: Reports: no symptoms. Musculoskeletal: Reports: no symptoms, see HPI. Objective Last 24 Hrs of Vital Signs/I&O Vital Signs Date Time Temp Pulse Resp B/P B/P Pulse O2 O2 Flow FiO2 Mean Ox Delivery Rate 04/15 1505 98.1 68 20 122/71 100 Room Air 04/15 1134 98.0 70 18 124/70 96 Room Air 04/15 0717 61 134/68 04/15 0636 98.1 74 20 140/80 95 Room Air 04/15 0000 Room Air 04/14 2201 98.7 79 18 130/64 98 04/14 2200 79 130/64 Intake & Output 04/15 1600 04/15 0800 04/15 0000 Intake Total 435 650 480 Output Total 0 Balance 435 650 480 Intake, IV 75 600 Intake, Oral 360 50 480 Number 0 Bowel Movements Output, 0 Drainage Physical Exam General Appearance: Alert, Oriented X3, Cooperative, No Acute Distress HEENT: Atraumatic, EOMI Neck: Supple Cardiovascular: Regular Rate, Normal S1, Normal S2 Lungs: Clear to Auscultation, Normal Air Movement Current Medications: Current Medications Sig/Kyra Start time Last Medication Dose Route Stop Time Status Admin Acetaminophen 1,000 MG Q6P PRN 04/08 1330 AC N/A 1 UNIT IV Acetaminophen 650 MG Q6P PRN 04/08 0030 AC PO Aspirin 325 MG DAILY 04/16 900 AC PO Atorvastatin Calcium 40 MG DAILY 04/08 900 AC 04/14 PO 826 Cilostazol 100 MG BID 04/08 900 AC 04/14 PO 2201 Dextrose/Sodium 1,000 ML Q13H 04/14 2355 DC 04/15 Chloride IV 04/15 1254 0020 Fentanyl Citrate 0 .STK-MED ONE 04/15 0722 DC .ROUTE Gabapentin 600 MG Q8 04/08 0600 AC 04/15 PO 1357 Heparin Sodium 5,000 UNIT Q8 04/08 1400 AC 04/15 (Porcine) SC 1355 Hydromorphone HCl 0 .STK-MED ONE 04/15 1040 DC .ROUTE Hydromorphone HCl 0 .STK-MED ONE 04/15 0723 DC .ROUTE Insulin Aspart 0 TIDAC 04/15 1200 AC 04/15 SC 1656 Insulin Aspart 0 Q6 04/14 2359 DC 04/15 SC 0555 Insulin Aspart 0 AT BEDTIME 04/08 2100 AC 04/12 SC 2105 Insulin Aspart 0 TIDAC 04/08 1700 DC 04/14 SC 1239 Insulin Detemir 14 UNITS DAILY 04/13 0900 AC 04/14 SC 0828 Insulin Detemir 4 UNITS AT BEDTIME 04/12 2100 AC 04/14 SC 2202 Insulin Human Regular 0 .STK-MED ONE 04/15 0004 DC .ROUTE Levothyroxine Sodium 0.137 MG DAILY 04/08 0900 AC 04/14 PO 0828 Meropenem 1 GM Q8H 04/15 2100 AC IV Meropenem 1 GM Q8H 04/15 0845 DC 04/15 IV 1131 Meropenem 1 GM Q8 04/15 0600 DC IV Meropenem 1 GM Q8 04/15 0045 DC 04/15 IV 0114 Metoprolol Succinate 25 MG DAILY 04/08 0900 AC 04/15 PO 0717 Midazolam HCl 0 .STK-MED ONE 04/15 0723 DC .ROUTE Morphine Sulfate 2 MG Q6P PRN 04/11 2330 AC 04/15 IV 1131 Nicotine 21 MG DAILY 04/08 0900 AC 04/14 TOP 0826 Oxycodone HCl 5 MG Q4-6 PRN 04/11 1600 AC 04/15 PO 1655 Oxycodone/ 1 TAB Q4P PRN 04/08 2015 AC 04/15 Acetaminophen PO 1225 Promethazine HCl 25 MG Q8P PRN 04/08 0100 DC 04/11 PO 04/15 0059 2206 Ranolazine 500 MG BID 04/08 09 AC 04/14 PO 2200 Assessment/Plan Assessment: Ms. Flower is a 52 y/o F with PMH MS, Parkinson's disease, Huntingtons Dz, DM, three prior MS, Lupus, fibromyalgia, iron def anemia, hypothyroidism presenting to ED under the direction of Dr. Kurtz who saw her in his office. As per pt , she had surgery to her left foot 4th digit on 02/14 with subsequent 'staph bacterial infection'. She was put on abx to completion. She also notes three day history of LLE swelling and redness. Her left 4th digit has sutures in place and is actively draining purulent drainage. She reported associated n/v/ chills. ASSESSMENT #Left foot cellulitis/ Osteomyelitis #DM type 1 #Hyperkalemia #Thrombocytosis #Active smoker #Left foot cellulitis/ Osteomyelitis OR culture showed coagulase negative Staph, pseudomonas and enteroccocus. Pt went to the OR for revascularization this AM. She continues to remain afebrile. WBC 7.7, will need antibiotic therapy on meropenem course for 4 weeks. PICC line for continued IV abx medication after d/c. Post op xray showed no radiographic evidence of osteomyelitis of the residual 4th metatarsal. -Continue meropenem #DM type I Insulin inpatient management as per endocrinology's recommendation. Bedside glucose monitoring showed glucose between 94-219; she refused her insulin last night. Latest am reading was 403. Will resume prior scale after she tolerates po. #Hyperkalemia, resolved 5.0 latest lab. May be medication related. Will continue to monitor. #Thrombocytosis Likely reactive to infection. 487 latest lab. Will continue to monitor #Active smoker Actively smokes tobacco. -Nicotine patch 21mg as per patient request DVT prophylaxis: heparin 5000units subcu/ALP RLE/ ambulation Code Status: DNR/DNI Problem List: 1. Osteomyelitis 2. Cellulitis 3. Diabetes mellitus type 1 Pain Ratin Pain Location: Left foot Pain Goal: Pain 4 or less Pain Plan: as per pathway Tomorrow's Labs & Rationales: cbc, bep/cr Jah Gan MD 04/15/185: Attending MD Review Statement Attending Statement Attending Statement: examined this patient, discuss w/resident/PA/PRESS CLEANER, agreed w/resident/PA/PRESS CLEANER, discussed with family, reviewed EMR data (avail), discussed with nursing, discussed with case mgmt, amended to note Attending Assessment/Plan: The patient was seen and discussed with house staff, nursing and case management. Underwent angioplasty with vascular surgery today with success. Wound vac was to be delivered today and ?OP antibiotics to begin tomorrow. Appreciate ID and Vascular consults.
[2018-04-15 06:36] VITALS: BP 140/80
--- NOTE | 2018-04-15 11:06 | RADIOLOGY REPORT ---
EXAMINATION: XR ANGIOGRAM OR CLINICAL INFORMATION: 52-year-old female requiring fluoroscopic imaging in the operating room for arteriography and angioplasty. COMPARISON: None TECHNIQUE: Intraoperative fluoroscopic imaging of left lower extremity was required by Dr. Oneil. Aortography, left lower extremity angiography and balloon angioplasty procedures were performed. Please refer to the operative report. NUMBER OF SAVED IMAGES: 32 series of images are saved in the electronic picture archive. FLUOROSCOPY TIME: 22 minutes, 35 seconds. FINDINGS: This is an administrative dilatation noting the use of intraoperative fluoroscopy. Please refer to the operative report regarding the findings and interventions performed by Dr. Oneil. IMPRESSION: Intraoperative fluoroscopic assistance was provided to the operating room.
[2018-04-15 11:34] VITALS: BP 124/70
--- NOTE | 2018-04-15 11:53 | PN- Diabetes ---
Assessment/Plan Diabetes Assessment: 52 years old female with type 1 diabetes. At home, she was on 20 units of Lantus daily with 3 to 5 units of Novolog for meals. She was admitted for left foot infection. In hospital, she was on Levemir 14 units in the morning and 4 units at bedtime. In additions, she is Novolog coverage before meals and another Novolog coverage at bedtime. Before Each Meal: < 80 mg/dl: 0 80-100 mg/dl: 3 101-120 mg/dl: 4 121-150 mg/dl: 4 151-200 mg/dl: 5 201-250 mg/dl: 6 251-300 mg/dl: 7 301-350 mg/dl: 8 351-400 mg/dl: 9 > 400 mg/dl: 10 Bedtime: < 80 mg/dl: 0 80-100 mg/dl: 0 101-120 mg/dl: 0 121-150 mg/dl: 0 151-200 mg/dl: 0 201-250 mg/dl: 1 251-300 mg/dl: 2 301-350 mg/dl: 3 351-400 mg/dl: 4 > 400 mg/dl: 5 Her FSGs were 94, 160, 219. She refused insulin last night. Her FSG was 403 this morning. She went to OR this morning for more procedure. Plan: After she is back from OR and when she is ready to eat meals, I will restart 1. Levemir 14 units am and 4 units at bedtime; 2. restart Novolog coverage before meals: Before Each Meal: < 80 mg/dl: 0 80-100 mg/dl: 3 units 101-120 mg/dl: 4 units 121-150 mg/dl: 4 units 151-200 mg/dl: 5 units 201-250 mg/dl: 6 units 251-300 mg/dl: 7 units 301-350 mg/dl: 8 units > 351 mg/dl: 9 units 3. adjust Novolog coverage at bedtime Bedtime: < 80 mg/dl: 0 80-100 mg/dl: 0 101-120 mg/dl: 0 121-150 mg/dl: 0 151-200 mg/dl: 0 201-250 mg/dl: 0 251-300 mg/dl: 0 301-350 mg/dl: 2 units 351-400 mg/dl: 3 units > 400 mg/dl: 4 units 4. monitor FSGs. will follow. Subjective Subjective: She was in OR this morning. Objective Last 24 Hrs of Vital Signs/I&O Vital Signs Date Time Temp Pulse Resp B/P B/P Pulse O2 O2 Flow FiO2 Mean Ox Delivery Rate 04/15 1134 98.0 70 18 124/70 96 Room Air 04/15 0717 61 134/68 04/15 0636 98.1 74 20 140/80 95 Room Air 04/15 0000 Room Air 04/14 2201 98.7 79 18 130/64 98 04/14 2200 79 130/64 04/14 1421 97.7 88 18 140/82 98 Intake & Output 04/15 1600 04/15 0800 04/15 0000 Intake Total 650 480 Output Total 0 Balance 650 480 Intake, IV 600 Intake, Oral 50 480 Output, 0 Drainage Findings Pertinent Lab/Donovan Results: Laboratory Tests 04/14 1455 Hematology ESR Westergren (0 - 20 MM) 60 H
--- NOTE | 2018-04-15 12:12 | PN- Vascular Surgery ---
Subjective Subjective: POC Patient in bed with no complaints. Denies paresthesias in lower extremity. No nausea or vomiting Denies chest pain shortness of breath Objective Vital Signs and I&Os Vital Signs Date Time Temp Pulse Resp B/P B/P Pulse O2 O2 Flow FiO2 Mean Ox Delivery Rate 04/15 1134 98.0 70 18 124/70 96 Room Air 04/15 0717 61 134/68 04/15 0636 98.1 74 20 140/80 95 Room Air 04/15 0000 Room Air 04/14 220 98.7 79 18 130/64 98 04/14 2200 79 130/64 04/14 1421 97.7 88 18 140/82 98 Intake & Output 04/15 1600 04/15 0800 04/15 0000 04/14 1600 04/14 0804/14 0000 Intake Total 650 480 960 300 Output Total 0 Balance 650 480 960 300 Intake, IV 600 60 Intake, Oral 50 480 900 300 Number 0 Bowel Movements Output, 0 Drainage Physical Exam: gen- NAD ext- right groin dressing clean and dry, no signs of hematoma. nontender. groin is soft. left left is warm and dry, distal sensory and motor function intact. +PT signal Current Medications: Current Medications Sig/Kyra Start time Last Medication Dose Route Stop Time Status Admin Acetaminophen 1,000 MG Q6P PRN 04/08 1330 AC N/A 1 UNIT IV Acetaminophen 650 MG Q6P PRN 04/08 0030 AC PO Atorvastatin Calcium 40 MG DAILY 04/08 0900 AC 04/14 PO 0827 Cilostazol 100 MG BID 04/08 0900 AC 04/14 PO 2201 Dextrose/Sodium 1,000 ML Q13H 04/14 2355 AC 04/15 Chloride IV 04/15 1254 0020 Fentanyl Citrate 0 .STK-MED ONE 04/15 0722 DC .ROUTE Gabapentin 600 MG Q8 04/08 0600 AC 04/15 PO 0554 Heparin Sodium 5,000 UNIT Q8 04/08 1400 AC 04/14 (Porcine) SC 2201 Hydromorphone HCl 0 .STK-MED ONE 04/15 1040 DC .ROUTE Hydromorphone HCl 0 .STK-MED ONE 04/15 0723 DC .ROUTE Insulin Aspart 0 TIDAC 04/15 1200 r SC Insulin Aspart 0 Q6 04/14 2359 DC 04/15 SC 0555 Insulin Aspart 0 AT BEDTIME 04/08 2100 r 04/12 SC 2105 Insulin Aspart 0 TIDAC 04/08 1700 DC 04/14 SC 1239 Insulin Detemir 14 UNITS DAILY 04/13 09 AC 04/14 SC 08 Insulin Detemir 4 UNITS AT BEDTIME 04/12 2100 AC 04/14 SC 220 Insulin Human Regular 0 .STK-MED ONE 04/15 0004 DC .ROUTE Levothyroxine Sodium 0.137 MG DAILY 04/08 09 AC 04/14 PO 0828 Meropenem 1 GM Q8H 04/15 0845 AC 04/15 IV 1131 Meropenem 1 GM Q8 04/15 0600 DC IV Meropenem 1 GM Q8 04/15 0045 DC 04/15 IV 0114 Meropenem 1 GM Q8 04/10 1417 DC 04/14 IV 1351 Metoprolol Succinate 25 MG DAILY 04/08 0900 AC 04/15 PO 0717 Midazolam HCl 0 .STK-MED ONE 04/15 0723 DC .ROUTE Morphine Sulfate 2 MG Q6P PRN 04/11 2330 AC 04/15 IV 1131 Nicotine 21 MG DAILY 04/08 0900 AC 04/14 TOP 0826 Oxycodone HCl 5 MG Q4-6 PRN 04/11 1600 AC 04/14 PO 1932 Oxycodone/ 1 TAB Q4P PRN 04/08 2015 AC 04/15 Acetaminophen PO 0555 Promethazine HCl 25 MG Q8P PRN 04/08 0100 DC 04/11 PO 04/15 0059 2206 Ranolazine 500 MG BID 04/08 09 AC 04/14 PO 2200 Results Last 48 Hours of Labs: Laboratory Tests 04/14 04/14 04/14 1455 1028 0808 Chemistry Sodium (137 - 145 mmol/L) 129 L 129 L Potassium (3.5 - 5.1 mmol/L) 5.0 5.3 H Chloride (98 - 107 mmol/L) 98 98 Carbon Dioxide (22 - 30 mmol/L) 26 27 Anion Gap (5 - 16) 6 5 BUN (7 - 17 mg/dL) 16 16 Creatinine (0.5 - 1.0 mg/dL) 0.9 0.9 Estimated GFR (>60 ml/min) > 60 > 60 BUN/Creatinine Ratio (7 - 25 %) 17.8 17.8 Hematology ESR Westergren (0 - 20 MM) 60 H Assessment/Plan Assessment/Plan 52yo F SP Left leg angio with stent placement POD0. stable bedrest with head of bed less than 30 degrees for 6 hours, then OOB ok dry dressing change by nursing POD2 anticoagulation- 325mg daily now and on DC FU with Dr Oneil in 10-14d Core Measures Venous Thromboembolism VTE Risk Factors Acute Medical Illness No Mechanical VTE Prophylaxis d/t N/A MechProphylax Ordered No VTE Pharm Prophylaxis d/t NA PharmProphylax ordered
[2018-04-15 15:05] VITALS: BP 122/71
--- NOTE | 2018-04-15 17:43 | Operative Report ---
Operative/Inv Procedure Report Surgery Date: 04/15/18 Name of Procedure: Ultrasound guidance for vascular access, aortography, left selective pelvic angiography, left SFA angioplasty, left anterior tibial artery angioplasty, placement of an Exoseal closure device Pre-Operative Diagnosis: Left foot PAD with ulcer Post-Operative Diagnosis: Left foot PAD with ulcer Estimated Blood Loss: scant Surgeon/Test Operator: Dave Oneil MD Anesthesia: local monitored anesthesi Drains: VAC in place Complications: None Condition: Patient transported stable to PACU Operative Indication: 52-year-old female with multiple medications and medical problems including diabetes and a [id number] smoking history. She underwent a podiatric intervention several weeks ago. This has resulted in a nonhealing left foot wound. Angiography and intervention is indicated for limb salvage. Risks benefits and alternatives explained to the patient including bleeding infection pain scar limb loss and . She consented to the procedure. Operative/Procedure Note Note: 52-year-old female with multiple medications and medical problems including diabetes and a [id number] smoking history. She underwent a podiatric intervention several weeks ago. This has resulted in a nonhealing left foot wound. Angiography and intervention is indicated for limb salvage. Risks benefits and alternatives explained to the patient including bleeding infection pain scar limb loss and . She consented to the procedure. Patient was placed supine on the table. A timeout was held in accordance with [facility] policy. The right femoral artery was selected for access. Using needle guidance with an ultrasound the right common femoral artery was accessed. An 0.018 inch wire was placed and a 5 Rwandan coaxial dilator system was followed by a 5 [place]andan sheath. Aortography and pelvic angiography then ensued. Aortography demonstrates the pain aorto and bilateral iliac segment. The common and external iliac arteries are patent. The renal arteries were poorly visualized but appear patent. The left internal iliac artery was then selected. This demonstrates a patent internal iliac artery. The left common femoral artery was then selected and selective tibial and SFA angiography was performed of the left leg. This demonstrates a patent common femoral and profunda femoris. The proximal SFA is patent. There is a moderate to severe stenosis of the patient's mid to distal SFA. The above and below-knee popliteal artery are patent. The tibioperoneal trunk is patent and then occludes. The posterior tibial artery is a occluded. The peroneal artery is occluded. The anterior tibial artery is patent proximally. There is moderate to severe disease in the proximal anterior tibial artery. The distal anterior tibial artery is occluded with reconstitution to a very diseased dorsalis pedis artery. Due to the patient's wound the decision was made to perform intervention. She was bolused with 5000 - 6000 units of heparin during the case. A 5 R[place]andan sheath was placed over the bifurcation. The left SFA lesion was then traversed and treated with a 6 mm balloon angioplasty. The anterior tibial artery was then selected and a wire was placed distally. This proved to be difficult due to dense collateralization. The proximal anterior tibial artery was treated with 2.5-3 mm balloon angioplasty. Completion angiography demonstrates no significant restenosis or evidence of extravasation in the treated region.. The catheter, sheath and wire systems were then removed. A closure device was placed in the right groin. The patient will benefit from hyperbaric oxygen therapy and may require further vascular intervention in the future depending on how her wound progresses. CC: Michele TREVINO,Kenan Smith; Thomas BEST,Erlin
[2018-04-15 22:21] VITALS: BP 131/75
[2018-04-16 00:47] VITALS: BP 110/66
[2018-04-16 06:34] VITALS: BP 120/68
--- NOTE | 2018-04-16 06:44 | PN- Housestaff ---
Eduardo ParedesBobo 04/16/18 0644: Subjective Follow-up For: Left foot cellulitis/osteomyelitis DM HTN Review of Systems Constitutional: Reports: see HPI. Objective Last 24 Hrs of Vital Signs/I&O Vital Signs Date Time Temp Pulse Resp B/P B/P Pulse O2 O2 Flow FiO2 Mean Ox Delivery Rate 04/16 0817 71 120/68 04/16 0816 71 120/68 04/16 0634 98.7 71 18 120/68 95 Room Air 04/16 0047 77 16 110/66 97 Room Air 04/15 2221 98.4 77 20 131/75 98 Room Air 04/15 2142 75 131/77 04/15 1600 Room Air Intake & Output 04/16 1600 04/16 0800 04/16 0000 Intake Total 120 550 Output Total Balance 120 550 Intake, IV 50 Intake, Oral 120 500 Physical Exam General Appearance: Alert, Oriented X3, Cooperative, No Acute Distress HEENT: Atraumatic Cardiovascular: Regular Rate, Normal S1, Normal S2 Lungs: Clear to Auscultation, Normal Air Movement Abdomen: Normal Bowel Sounds, Soft, No Tenderness Current Medications: Current Medications Sig/Kyra Start time Last Medication Dose Route Stop Time Status Admin Acetaminophen 1,000 MG Q6P PRN 04/08 1330 DCD N/A 1 UNIT IV Acetaminophen 650 MG Q6P PRN 04/08 0030 DCD PO Aspirin 325 MG DAILY 04/16 09 DCD 04/16 PO 0816 Atorvastatin Calcium 40 MG DAILY 04/08 09 DCD 04/16 PO 0816 Cilostazol 100 MG BID 04/08 09 DCD 04/16 PO 0817 Gabapentin 600 MG Q8 04/08 0600 DCD 04/16 PO 0527 Heparin Sodium 5,000 UNIT Q8 04/08 1400 DCD 04/16 (Porcine) SC 0528 Insulin Aspart 0 TIDAC 04/15 1200 DCD 04/16 SC 1201 Insulin Aspart 0 AT BEDTIME 04/08 2100 DCD 04/15 SC 2138 Insulin Detemir 14 UNITS DAILY 04/13 09 DCD 04/16 SC 0818 Insulin Detemir 4 UNITS AT BEDTIME 04/12 2100 DCD 04/15 SC 2138 Levothyroxine Sodium 0.137 MG DAILY 04/08 09 DCD 04/16 PO 0817 Meropenem 1 GM Q8H 04/15 2100 DCD 04/16 IV 1202 Metoprolol Succinate 25 MG DAILY 04/08 0900 DCD 04/16 PO 0816 Morphine Sulfate 2 MG Q6P PRN 04/11 2330 DCD 04/16 IV 0054 Nicotine 21 MG DAILY 04/08 09 DCD 04/16 TOP 08 Oxycodone HCl 5 MG Q4-6 PRN 04/11 1600 DCD 04/16 PO 1113 Oxycodone/ 1 TAB Q4P PRN 04/08 2015 DCD 04/16 Acetaminophen PO 08 Ranolazine 500 MG BID 04/08 09 DCD 04/16 PO 0817 Last 24 Hrs of Lab/Donovan Results Last 24 Hrs of Labs/Mics: Laboratory Tests 04/16/18 0519: CBC w Diff NO MAN DIFF REQ, RBC 2.79 L, MCV 86.3, MCH 28.3, MCHC 32.7 L, RDW 13.6, MPV 7.6, Gran % 53.0, Lymphocytes % 34.1, Monocytes % 6.5, Eosinophils % 5.2 H, Basophils % 1.2, Absolute Granulocytes 2.7, Absolute Lymphocytes 1.7, Absolute Monocytes 0.3, Absolute Eosinophils 0.3, Absolute Basophils 0.1 04/16/18 0319: Anion Gap 6, Estimated GFR > 60, BUN/Creatinine Ratio 22.2 Assessment/Plan Assessment: Ms. Flower is a 52 y/o F with PMH MS, Parkinson's disease, Huntingtons Dz, DM, three prior NM, Lupus, fibromyalgia, iron def anemia, hypothyroidism presenting to ED under the direction of Dr. Kurtz who saw her in his office. As per pt , she had surgery to her left foot 4th digit on 02/14 with subsequent 'staph bacterial infection'. She was put on abx to completion. She also notes three day history of LLE swelling and redness. Her left 4th digit has sutures in place and is actively draining purulent drainage. She reported associated n/v/ chills on admission. ASSESSMENT #Left foot cellulitis/ Osteomyelitis #DM type 1 #Hyperkalemia #Thrombocytosis #Active smoker #Left foot cellulitis/ Osteomyelitis OR culture showed coagulase negative Staph, pseudomonas and enteroccocus. Pt went to the OR for revascularization this AM. She continues to remain afebrile. WBC 7.7, will need antibiotic therapy on meropenem course for 4 weeks. PICC line for continued IV abx medication after d/c. Post op xray showed no radiographic evidence of osteomyelitis of the residual 4th metatarsal. -Continue meropenem #DM type I Insulin inpatient management as per endocrinology's recommendation. Bedside glucose monitoring showed glucose between 94-219; she refused her insulin last night. Latest am reading was 403. Will resume prior scale after she tolerates po. #Hyperkalemia, resolved 5.0 latest lab. May be medication related. Will continue to monitor. #Thrombocytosis Likely reactive to infection. 487 latest lab. Will continue to monitor #Active smoker Actively smokes tobacco. -Nicotine patch 21mg as per patient request DVT prophylaxis: heparin 5000units subcu/ALP RLE/ ambulation Code Status: DNR/DNI Problem List: 1. Cellulitis 2. Osteomyelitis Pain Ratin Pain Location: LLE Pain Goal: Pain 4 or less Pain Plan: as per pathway Tomorrow's Labs & Rationales: . Jah Gan MD 04/16/18 2321: Attending MD Review Statement Attending Statement Attending MD Statement: examined this patient, discuss w/resident/PA/EDIPHONE OPERATOR, agreed w/resident/PA/EDIPHONE OPERATOR, reviewed EMR data (avail), discussed with nursing, discussed with case mgmt, amended to note Attending Assessment/Plan: The patient was seen and discussed with house staff, nursing, and case management. OK to discharge to home today with wound vac and IV Abx. To come in as OP later in week for OP amputation of 5th toe? (plan as per Dr. Guzman). To come in 5 days/week for hyperbaric treatment.
[2018-04-16 08:17] VITALS: BP 120/68
[2018-04-16 08:18] LABS: ABSOLUTE BASOPHIL COUNT 0.1 /CUMM (0.0-0.2); ABSOLUTE EOSINOPHIL COUNT 0.3 /CUMM (0.0-0.7); ABSOLUTE GRANULOCYTE CT 2.7 /CUMM (1.4-6.5); ABSOLUTE LYMPH COUNT 1.7 /CUMM (1.2-3.4); ABSOLUTE MONOCYTE COUNT 0.3 /CUMM (0.10-0.60); BASOPHIL % 1.2 % (0.0-2.0); EOSINOPHIL % 5.2 % (0-5); HEMATOCRIT 24.1 % (37-47); MEAN CORPUSCULAR HGB 28.3 PG (27.0-31.0); MEAN CORPUSCULAR HGB CONC 32.7 G/DL (33.0-37.0); MEAN CORPUSCULAR VOLUME 86.3 FL (81.0-99.0); MEAN PLATELET VOLUME 7.6 FL (7.4-10.4); PLATELET COUNT 415 /CUMM (130-400); RBC DISTRIBUTION WIDTH 13.6 % (11.5-14.5); RED BLOOD CELL CT 2.79 /CUMM (4.20-5.40)
--- NOTE | 2018-04-16 08:20 | Cons- Wound Care ---
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 Patient has long- standing diabetes, complicated by coronary disease status post myocardial infarction and peripheral vascular disease. 3 months ago she suffered injury to her her left foot with subsequent staph infection.. An MRI done recently showed evidence of abscess and osteomyelitis after which she was admitted. She underwent debridement and resection. Pathology showed evidence of osteomyelitis and cultures revealed Enterobacter and Pseudomonas of the bone and wound for which she is now on meropenem. She continues with a large nonhealing wound for which a wound VAC has been placed. Patient is status post angiography and stent placement for peripheral vascular disease Allergies/Medications Allergies: Coded Allergies: Penicillins (UNKNOWN 02/05/18) amoxicillin (From AUGMENTIN) (HIVES 02/05/18) clavulanic acid (From AUGMENTIN) (HIVES 02/05/18) erythromycin base (UNKNOWN 02/05/18) tetracycline (UNKNOWN 02/05/18) Home Med List: Atorvastatin Calcium (Lipitor) 40 MG TABLET 1 TAB PO DAILY HLP (Reported) Cilostazol 100 MG TABLET 1 TAB PO BID PVD (Reported) Gabapentin 600 MG TABLET 1 TAB PO TID NEUROPATHY (Reported) Insulin Aspart (Novolog) 100 UNIT/ML VIAL 0 UNITS SC SEE ADMIN CRITERIA DM Take 2 units before each meal Add additional units per slioding scale below: 150-200: 1 unit 201-250: 2 units 251-300: 3 units 301-350: 4 units 351-400: 5 units 401-450: 6 units Insulin-Lantus (Lantus) 100 UNIT/ML VIAL 16 UNITS SC QHS DM Levothyroxine Sodium (Synthroid) 137 MCG TABLET 1 TAB PO DAILY HYPOTHYROID ( Reported) Metoprolol Succ XL (Toprol XL) 25 MG TAB 1 TAB PO DAILY HTN (Reported) Promethazine HCl 25 MG TABLET 1 TAB PO Q8P PRN NAUSEA (Reported) Ranolazine (Ranexa) 500 MG TAB.ER.12H 1 TAB PO BID CAD (Reported) Review of Systems Review of Systems: Patient has no history of ear complaints or seizures she denies wheezing cough shortness of breath and pneumothorax she is unaware of asthma or emphysema Past History Travel History Traveled to [place] past 21 day No Medical History Neurological: multiple sclerosis, Parkinson's disease, ANGELY'S DISEASE EENT: NONE Cardiovascular: CAD, M.I. X 3 Gastrointestinal: NONE Hepatic: NONE Renal: NONE Musculoskeletal: fibromyalgia, LUPUS Psychiatric: NONE Endocrine: diabetes, hypothyroidism Blood Disorders: NONE Cancer(s): NONE Surgical History Surgical History: s/p resection of part of the bone of the left 4th toe Psychosocial History Where Do You Live? Home Who Do You Live With? spouse Smoking Status: Current Everyday Smoker (trying to quit [id number]) ETOH Use: denies use Illicit Drug Use: denies illicit drug use Exam & Diagnostic Data Vital Signs and I&O Vital Signs Result Date Time Pulse Ox 95 04/16 0634 B/P 120/68 04/16 0634 O2 Delivery Room Air 04/16 0634 Temp 98.7 04/16 0634 Pulse 71 04/16 0634 Resp 18 04/16 0634 Intake & Output 04/16 0000 04/15 1600 04/15 0800 Intake Total 550 435 650 Output Total 0 Balance 550 435 650 Intake, IV 50 75 600 Intake, Oral 500 360 50 Number 0 Bowel Movements Output, 0 Drainage Murmur oxygen saturation is normal exam of her chest shows clear lung neves are no wheezes or crackles cardiac exam shows regular S1 and S2. Abdomen is soft nontender exam for left lower extremity shows a wound VAC in in place. Wound will be evaluated at the time of her next wound VAC change. Assessment/Plan Impression/Plan: 52-year-old woman with multiple medical problems includes diabetes coronary artery disease peripheral vascular disease has had a chronic nonhealing wound of her left fourth toe and foot now presents with acute infection with abscess and osteomyelitis in the setting of peripheral vascular disease. Patient is a candidate for hyperbaric oxygen therapy for the treatment of a nonhealing Beavers grade 3 diabetic foot ulcer complicated by osteomyelitis. Recommendation is made for hyperbaric oxygen therapy at FiO2 100% 2.5 AJMEY for 90 minutes of therapeutic treatment time. Initial regimen is proposed to 30 treatments. Please obtain plain chest x-ray. Insurance approval will be sought post discharge Consult Acknowledgment - Thank you for your consult request.
--- NOTE | 2018-04-16 08:37 | PN- Diabetes ---
Assessment/Plan Diabetes Assessment: The patient states she feels okay. She had a stent placed in her left leg yesterday. Her sugar got high late in the day. This morning her sugar was again over 400. The patient also has hyponatremia. Her last serum sodium was 129. The patient states that discharge is planned today. She is going to be on IV antibiotics at home and also is going to be scheduled to have treatments in the hyperbaric chamber. Plan: Suggest give 14 units of Levemir this morning and 9 units of NovoLog. We should check the patient's blood sugar 2 hours after the NovoLog this morning to make sure her sugar is coming down. We also need to recheck the patient's serum sodium before she leaves the hospital. When the patient goes home she uses Lantus insulin. I instructed her to take between 4 and 8 units of Lantus tonight and then to resume her usual dose of 22 units of Lantus tomorrow. When she is scheduled for hyperbaric treatments they do not like her sugar to be less than 120 when she arrives for her treatment. This is because sugars tend to go down in the hyperbaric chamber. Patient will have her fax her sugar readings to the office when she is home so we can make further adjustments in her insulin regimen. In addition she would benefit from a continuous blood glucose monitor. Subjective Subjective: Feels okay Review of Systems Constitutional: Denies: chills, fever. Cardiovascular: Denies: chest pain. Gastrointestinal: Denies: abdominal pain, nausea, vomiting. Objective Last 24 Hrs of Vital Signs/I&O Vital Signs Date Time Temp Pulse Resp B/P B/P Pulse O2 O2 Flow FiO2 Mean Ox Delivery Rate 04/16 0817 71 120/68 04/16 0816 71 120/68 04/16 0634 98.7 71 18 120/68 95 Room Air 04/16 0047 77 16 110/66 97 Room Air 04/15 2221 98.4 77 20 131/75 98 Room Air 04/15 2142 75 131/77 04/15 1600 Room Air 04/15 1505 98.1 68 20 122/71 100 Room Air 04/15 1134 98.0 70 18 124/70 96 Room Air Intake & Output 04/16 1600 04/16 0800 04/16 0000 Intake Total 550 Output Total Balance 550 Intake, IV 50 Intake, Oral 500 Vital Signs Date Time Temp Pulse Resp B/P B/P Pulse O2 O2 Flow FiO2 Mean Ox Delivery Rate 04/16 0817 71 120/68 04/16 0816 71 120/68 04/16 0634 98.7 71 18 120/68 95 Room Air 04/16 0047 77 16 110/66 97 Room Air 04/15 2221 98.4 77 20 131/75 98 Room Air 04/15 2142 75 131/77 04/15 1600 Room Air 04/15 1505 98.1 68 20 122/71 100 Room Air 04/15 1134 98.0 70 18 124/70 96 Room Air Intake & Output 04/16 1600 04/16 0800 04/16 0000 Intake Total 550 Output Total Balance 550 Intake, IV 50 Intake, Oral 500 Physical Exam General Appearance: alert, awake, comfortable Respiratory: normal breath sounds Cardiovascular: regular rate/rhythm Extremities: left foot bandaged Current Medications: Current Medications Sig/Kyra Start time Last Medication Dose Route Stop Time Status Admin Acetaminophen 1,000 MG Q6P PRN 04/08 1330 AC N/A 1 UNIT IV Acetaminophen 650 MG Q6P PRN 04/08 0030 AC PO Aspirin 325 MG DAILY 04/16 0900 AC 04/16 PO 0816 Atorvastatin Calcium 40 MG DAILY 04/08 0900 AC 04/16 PO 0816 Cilostazol 100 MG BID 04/08 0900 AC 04/16 PO 0817 Dextrose/Sodium 1,000 ML Q13H 04/14 2355 DC 04/15 Chloride IV 04/15 1254 0020 Gabapentin 600 MG Q8 04/08 0600 AC 04/16 PO 0527 Heparin Sodium 5,000 UNIT Q8 04/08 1400 AC 04/16 (Porcine) SC 0528 Hydromorphone HCl 0 .STK-MED ONE 04/15 1040 DC .ROUTE Insulin Aspart 0 TIDAC 04/15 1200 AC 04/16 SC 0819 Insulin Aspart 0 Q6 04/14 2359 DC 04/15 SC 0555 Insulin Aspart 0 AT BEDTIME 04/08 2100 AC 04/15 SC 2138 Insulin Detemir 14 UNITS DAILY 04/13 0900 AC 04/16 SC 0818 Insulin Detemir 4 UNITS AT BEDTIME 04/12 2100 AC 04/15 SC 2138 Levothyroxine Sodium 0.137 MG DAILY 04/08 0900 AC 04/16 PO 0817 Meropenem 1 GM Q8H 04/15 2100 AC 04/16 IV 0527 Meropenem 1 GM Q8H 04/15 0845 DC 04/15 IV 1131 Metoprolol Succinate 25 MG DAILY 04/08 09 AC 04/16 PO 0816 Morphine Sulfate 2 MG Q6P PRN 04/11 2330 AC 04/16 IV 0054 Nicotine 21 MG DAILY 04/08 09 AC 04/16 TOP 0829 Oxycodone HCl 5 MG Q4-6 PRN 04/11 1600 AC 04/15 PO 2208 Oxycodone/ 1 TAB Q4P PRN 04/08 2015 AC 04/16 Acetaminophen PO 0818 Ranolazine 500 MG BID 04/08 09 AC 04/16 PO 0817 Findings Pertinent Lab/[facility] Results: Laboratory Tests 04/16 04/16 04/14 04/14 0519 0319 1455 1028 Chemistry Sodium (137 - 145 mmol/L) Pending 129 L Potassium (3.5 - 5.1 mmol/L) Pending 5.0 Chloride (98 - 107 mmol/L) Pending 98 Carbon Dioxide (22 - 30 mmol/L) Pending 26 Anion Gap (5 - 16) Pending 6 BUN (7 - 17 mg/dL) Pending 16 Creatinine (0.5 - 1.0 mg/dL) Pending 0.9 Estimated GFR (>60 ml/min) > 60 BUN/Creatinine Ratio (7 - 25 %) Pending 17.8 Hematology CBC w Diff Pending WBC Pending RBC Pending Hgb Pending Hct Pending MCV Pending MCH Pending MCHC Pending RDW Pending Plt Count Pending MPV Pending ESR Westergren (0 - 20 MM) 60 H
--- NOTE | 2018-04-16 09:19 | RADIOLOGY REPORT ---
EXAMINATION: XR CHEST CLINICAL INFORMATION: Prehyperbaric chamber x-ray. COMPARISON: Chest x-ray 04/11/2018. TECHNIQUE: Frontal and lateral views of the chest were obtained. FINDINGS: There has been no interval change in the right-sided PICC line with the tip at the cavoatrial junction. The lung neves are well expanded and appear clear bilaterally. The cardiac silhouette is normal. There are no pleural effusions or pneumothorax. The central pulmonary vasculature is normal. The hilar regions appear normal. There are mild degenerative changes in the thoracic spine. IMPRESSION: 1. There is a stable right-sided PICC line, with tip at the cavoatrial junction. 2. There are no acute cardiopulmonary findings.
[2018-04-16] MEDS ORDERED: MEROPENEM1 G1 IV (10:50)
[2018-04-16] MEDS ORDERED: LANTUS100 UNIT/1 SC (10:50)
--- NOTE | 2018-04-16 14:59 | Discharge Summary ---
Visit Information Visit Dates Admission Date: 04/09/18 Discharge Date: 04/16/18 Hospital Course Course Attending Physician: Jah Gan MD Primary Care Physician: James Poole MD Allergies: Coded Allergies: Penicillins (UNKNOWN 02/05/18) amoxicillin (From AUGMENTIN) (HIVES 02/05/18) clavulanic acid (From AUGMENTIN) (HIVES 02/05/18) erythromycin base (UNKNOWN 02/05/18) tetracycline (UNKNOWN 02/05/18) Discharge Instructions Medications at Discharge Discharge Medications: Continue taking these medications: Atorvastatin Calcium (Lipitor) 40 MG TABLET 1 Tablet ORAL DAILY Comments: Last Taken:04/16/18 Time:8:16 AM Metoprolol Succ XL (Toprol XL) 25 MG TAB 1 Tablet ORAL DAILY Comments: Last Taken:04/16/18 Time:8:16 AM Gabapentin (Gabapentin) 600 MG TABLET 1 Tablet ORAL THREE TIMES DAILY Comments: Last Taken:04/16/18 Time:5:57 AM Ranolazine (Ranexa) 500 MG TAB.ER.12H 1 Tablet ORAL TWICE DAILY Comments: Last Taken:04/16/18 Time:8:17 AM Cilostazol (Cilostazol) 100 MG TABLET 1 Tablet ORAL TWICE DAILY Comments: Last Taken:04/16/18 Time:8:17 AM Levothyroxine Sodium (Synthroid) 137 MCG TABLET 1 Tablet ORAL DAILY Comments: Last Taken:04/15/18 Time:8:17 AM Promethazine HCl (Promethazine HCl) 25 MG TABLET 1 Tablet ORAL EVERY 8 HOURS NEEDED as needed for NAUSEA Instructions: NOT GIVEN IN THE HOSPITAL Start taking the following new medications: Insulin-Lantus (Lantus) 100 UNIT/ML VIAL 22 Units SC TAKE AT BEDTIME Qty = 10 No Refills Insulin Aspart (Novolog) 100 UNIT/ML VIAL 0 Units SC SEE INSTRUCTIONS Qty = 1 No Refills Instructions: Take 2 units before each meal Add additional units per slioding scale below: 150-200: 1 unit 201-250: 2 units 251-300: 3 units 301-350: 4 units 351-400: 5 units 401-450: 6 units Meropenem (Meropenem) 1 GRAM VIAL 1 Gram IV Q8H Qty = 71 No Refills
== END 2018-04-16 12:35 | disposition home health service (06) | DRG 617 ==
LOC: ERH 20:18 → ERHI 04-08 00:02 → ENTRNSPT 04-08 13:29 → EDTRNSPTSTS 04-08 13:36 → EDTRNSPT 04-08 13:36 → 2NB 04-08 13:57 → CMPTRNSPT 04-08 14:00 → EDBEDREQ 04-08 15:16 → ENRESERV 04-08 16:26 → ENTRNSPT 04-08 17:23 → EDTRNSPT 04-08 17:49 → EDTRNSPTSTS 04-08 17:49 → 2NB 04-08 17:55 → CMPTRNSPT 04-08 18:18 → 2NB 04-09 10:58 → ENTRNSPT 04-11 13:51 → EDTRNSPT 04-11 13:58 → EDTRNSPTSTS 04-11 13:58 → CMPTRNSPT 04-11 14:27 → ENTRNSPT 04-15 10:57 → EDTRNSPT 04-15 11:02 → EDTRNSPTSTS 04-15 11:02 → CMPTRNSPT 04-15 11:42 → ENPENDDIS 04-16 10:55 → ENTRNSPT 04-16 12:27 → EDTRNSPTSTS 04-16 12:31 → EDTRNSPT 04-16 12:31 → 2NB 04-16 12:35 → CMPTRNSPT 04-16 13:14
PROVIDERS: Hospitalist; Internal Medicine; Student in an Organized Health Care Education/Training Program
PROC: 0Y6N0ZD Detachment at Left Foot, Partial 4th Ray, Open Approach (ICD-10-PCS; principal; 2018-04-08)
PROC: 0Y6N0ZD Detachment at Left Foot, Partial 4th Ray, Open Approach (ICD-10-PCS; 2018-04-11)
PROC: 02HV33Z Insertion of Infusion Device into Superior Vena Cava, Percutaneous Approach (ICD-10-PCS; 2018-04-11)
PROC: 047L3ZZ Dilation of Left Femoral Artery, Percutaneous Approach (ICD-10-PCS; 2018-04-15)
PROC: 047Q3ZZ Dilation of Left Anterior Tibial Artery, Percutaneous Approach (ICD-10-PCS; 2018-04-15)
PROC: B41D1ZZ Fluoroscopy of Aorta and Bilateral Lower Extremity Arteries using Low Osmolar Contrast (ICD-10-PCS; 2018-04-15)
DX: E10.69 Type 1 diabetes mellitus with other specified complication (principal); M86.8X7 Other osteomyelitis, ankle and foot; L03.116 Cellulitis of left lower limb; G10 Huntington's disease; G20 Parkinson's disease; E87.5 Hyperkalemia; G35 Multiple sclerosis; E10.42 Type 1 diabetes mellitus with diabetic polyneuropathy; E10.51 Type 1 diabetes mellitus with diabetic peripheral angiopathy without gangrene; D47.3 Essential (hemorrhagic) thrombocythemia; Z66 Do not resuscitate; I25.10 Atherosclerotic heart disease of native coronary artery without angina pectoris; E03.9 Hypothyroidism, unspecified; L93.0 Discoid lupus erythematosus; I25.2 Old myocardial infarction; M79.7 Fibromyalgia; F17.200 Nicotine dependence, unspecified, uncomplicated; Z87.81 Personal history of (healed) traumatic fracture; E10.649 Type 1 diabetes mellitus with hypoglycemia without coma; E10.621 Type 1 diabetes mellitus with foot ulcer; L97.529 Non-pressure chronic ulcer of other part of left foot with unspecified severity; I70.245 Atherosclerosis of native arteries of left leg with ulceration of other part of foot; B96.5 Pseudomonas (aeruginosa) (mallei) (pseudomallei) as the cause of diseases classified elsewhere; B95.4 Other streptococcus as the cause of diseases classified elsewhere; Z79.4 Long term (current) use of insulin; Z91.14 Patient's other noncompliance with medication regimen; Z88.0 Allergy status to penicillin; Z88.1 Allergy status to other antibiotic agents
CPT/HCPCS: 2NBSP; 87070; 87075; 87184; 36415; 36592; 71045; 71046; 73630-LT; 76000; 81001; 82436; 87147; 88305; 93005; 93010; C1725; C1760; C1769; J0131; J1644; J1815; J2001; J2185; J2405; J3370; J7040; J7042; Q9967